=== PATIENT | male | born 1935 | race Caucasian/White ===

== ENCOUNTER 2025-01-19 15:36 | Outpatient (REF) | payer MEDICARE, SELFPAY ==
--- OUTSIDE RECORDS SUMMARY | 2025-01-05 23:59 | XMS_ITS | Continuity of Care Document ---
Author Organization [facility] Address [address] [place] [address] Care Team Providers Care Engine Turner Name Role Phone JAI ONOFRE JR Primary Care Physician Encounter FT_[email or web address] [id number] Date(s): 01/05/25 - 01/05/25 [facility] [address] [address]- [place] Discharge Disposition: Home (Routine DC) Attending Physician: Mak LEDEZMA MD Encounter Type: Clinic Allergies, Adverse Reactions, Alerts SubstanceCriticalitySeverityReactionReaction SeverityStatuspenicillinRashActive Medications Align mg, Oral, Daily, Refills(s) 0, Prophylaxis Start Date: 07/16/24 Status: Ordered Medication Dispense Status: Completed Total Allowed Fills: 1 Fills Dispensed: 0 atorvastatin 10 mg Tab mg tab(s), Oral, Daily, Refills(s) 0, High cholesterol Start Date: 06/16/24 Status: Ordered Medication Dispense Status: Completed Total Allowed Fills: 1 Fills Dispensed: 0 Atrovent HFA 17 mcg/inh inhalation aerosol = 2 puff(s), Inhalation, QID, # 12.9 gram, Refills(s) 0 Start Date: 06/16/24 Status: Ordered Medication Dispense Status: Completed Quantity: 12.9 Unit: g Total Allowed Fills: 1 Fills Dispensed: 0 Cipro 500 mg Tab 500 mg = 1 tab(s), Oral, As Directed, Take one tab the day before the procedure. Then take the 2nd tab after the procedure has been completed., # 2 tab(s), Refills(s) 0, Pharmacy: [facility]/pharmacy #[id number], cm, 09/25/24 13:04:00 EDT, Height/Length Dosing, 95.4, kg, 09/25/24 13:04:00 EDT, Weight Dosing Start Date: 09/25/24 Status: Ordered Medication Dispense Status: Completed Quantity: 2.0 Unit: tab(s) Total Allowed Fills: 1 Fills Dispensed: 0 ezetimibe 10 mg Tab mg tab(s), Oral, Daily, Refills(s) 0, High cholesterol Start Date: 06/16/24 Status: Ordered Medication Dispense Status: Completed Total Allowed Fills: 1 Fills Dispensed: 0 finasteride 5 mg Tab mg tab(s), Oral, Daily, Refills(s) 0 Start Date: 06/16/24 Status: Ordered Medication Dispense Status: Completed Total Allowed Fills: 1 Fills Dispensed: 0 metformin 1,000 mg, Oral, Refills(s) 0, Blood glucose Start Date: 06/16/24 Status: Ordered Medication Dispense Status: Completed Total Allowed Fills: 1 Fills Dispensed: 0 metoprolol 25 mg, Refills(s) 0, High blood pressure Start Date: 06/16/24 Status: Ordered Medication Dispense Status: Completed Total Allowed Fills: 1 Fills Dispensed: 0 MiraLax gm, Oral, Daily, Refill(s) 0, Constipation Start Date: 06/16/24 Status: Ordered Medication Dispense Status: Completed Total Allowed Fills: 1 Fills Dispensed: 0 montelukast 10 mg Tab mg tab(s), Oral, Daily, Refills(s) 0, Allergy symptoms Start Date: 06/16/24 Status: Ordered Medication Dispense Status: Completed Total Allowed Fills: 1 Fills Dispensed: 0 Senna Oral, Once a day (at bedtime), Refill(s) 0, Constipation Start Date: 07/16/24 Status: Ordered Medication Dispense Status: Completed Total Allowed Fills: 1 Fills Dispensed: 0 tamsulosin 0.4 mg Cap TAKE 1 CAPSULE BY MOUTH EVERY DAY AT NIGHT Start Date: 09/25/24 Status: Ordered Medication Dispense Status: Completed Total Allowed Fills: 1 Fills Dispensed: 0 Xarelto 20 mg oral tablet Refills(s) 0, Blood Thinner Start Date: 07/16/24 Status: Ordered Medication Dispense Status: Completed Total Allowed Fills: 1 Fills Dispensed: 0 Problem List ConditionConfirmationCourseEffective DatesStatusHealth StatusInformantBloating ConfirmedActiveAtrial FibrillationConfirmedResolvedBenign localized hyperplasia of prostate with urinary obstruction and lower urinary tract symptomsConfirmed ActiveBPH with obstruction/lower urinary tract symptomsConfirmedActiveHematuria ConfirmedActiveConstipationConfirmedActiveSOB (shortness of breath)Confirmed ActivePersonal history of bladder cancerConfirmedActiveHistory of UTIConfirmed ActiveHTN (hypertension)ConfirmedResolvedHypercholesterolemia NOSConfirmed ResolvedElevated PSAConfirmedActiveUrinary retentionConfirmedActiveType II diabetes mellitusConfirmedActive Procedures ProcedureDateRelated DiagnosisBody SiteStatusColonoscopy09/02/24Completed Qztqqooirq07/25/19CompletedTransrectal biopsy of prostate using ultrasound (US) guidance04/26/10ompletedEvolve Laser ablation of prostate10/19/09Completed Urodynamics08/31/09CompletedCystoscopy/TURBT104/07/08CompletedTonsillectomy Completed ,12/2009, 10/19/2009, 12/24/2009, 01/02/2011, 10/04/2010,06/28/2010, 10/04/2010, 01/02/2011,03/19/2012, 03/04/2013, 03/03/2014, 03/01/2015, 03/20/2016, 04/09/2017, 04/15/2018 Social History Social History TypeResponseSmoking StatusFormer smoker, quit more than 30 days ago;Never; Type: Cigarettes entered on: 07/16/24Birth SexMaleSex RepresentationMale (finding) Hospital Discharge Instructions Follow Up Care 12/18/2024 10:05:36 With:DARIEN ORELLANA, Mak Gooden, URL Address: [address] [place] [address] When: Unknown Patient Care team information Care Team Personnel Name: JAI ONOFRE JR, DO Position: FT Physician Member Role: Primary Care Physician Address: [facility] [place] [address] Telecom: Care Team Related Persons Name: CHRIS COLÓN Insurance Providers Guarantor name: GEOVANNY COLÓN Health Plan Information #: 1 Payer: MEDICARE Payer Identifier: [id number] Member Number: [id number] Group Number: [id number] Subscriber Identifier: [id number] Relationship to Subscriber: self Coverage Type: MEDICARE Coverage Verification Date: 25 Telecom: [phone] Address: [id number] [place] [address] Health Plan Information #: 2 Payer: AARP Payer Identifier: [id number] Member Number: [id number] Group Number: [id number] Subscriber Identifier: [id number] Relationship to Subscriber: self Coverage Type: PRIVATE HEALTH INSURANCE Coverage Verification Date: 25 Telecom: [phone] Address: [id number] [place] [address]
--- OUTSIDE RECORDS SUMMARY | 2025-01-07 14:30 | XMS_ITS | Encounter Summary ---
Author Organization [facility] Address [address] [place] [address] Care Team Providers Care Cutter Down Name Role Phone Tripp Cat MD Primary Care Provider + [phone] Reason for Visit * ReasonCommentsWound Go Arteaga is a 89 y.o. male who presents for FUV ulceration of left great toe. Son Gage is present. Son relates dressing was falling off, so patients son removed, 2 days ago. Patient currently on Bactrim for possible UTI. BS:158 A1C 11.7 (03/2024) Encounter Details DateTypeDepartmentCare Team (Latest Contact Info)Hbdynjzdltt83/19/2025 2:30 PM ESTOffice Visit [facility] [address] [place] [address] Rodolfo Ballard, DPM [address] [place], [place] [phone] Stasis dermatitis of left lower extremity due to peripheral venous hypertension (Primary Dx); Diabetic polyneuropathy associated with type 2 diabetes mellitus (HCC); Type 2 diabetes mellitus with pressure ulcer of toe, stage 2 (HCC) Social History Tobacco UseTypesPacks/DayYears UsedDateSmoking Tobacco: FormerCigarettesQuit: 1980Smokeless Tobacco: NeverAlcohol UseStandard Drinks/WeekCommentsNever0 (1 standard drink = 0.6 oz pure alcohol)Caffeine intake: 1-2 cups per daySex and Gender InformationValueDate RecordedSex Assigned at BirthNot on fileLegal Sex Male05/03/2022 7:33 PM EDTGender IdentityNot on fileSexual OrientationNot on filedocumented as of this encounter Last Filed Vital Signs Vital SignReadingTime TakenCommentsBlood Pressure--Pulse--Dfewzqvmbdp00.5 ??C (97.7 ??F)01/07/2025 2:26 PM ESTRespiratory Rate--Oxygen Saturation--Inhaled Oxygen Concentration--Pbiibn29.3 kg (210 lb)01/07/2025 2:26 PM ARTKlkoeg498 cm (6' 4 )01/07/2025 2:26 PM ESTBody Mass Index25.56103/09/2024 2:26 PM EST documented in this encounter Patient Instructions * Patient Instructions* Rodolfo Ballard DPM - 01/07/2025 2:30 PM EST As noted documented in this encounter Progress Notes * Rodolfo Ballard DPM - 01/07/2025 2:30 PM EST Images from the original note were not included. Subjective Patient ID: Russ Arteaga is a 89 y.o. male who presents for Wound Check (Russ Arteaga is a 89 y.o. malewho presents for FUV ulceration of left great toe. Son Gage is present. Son relates dressing was falling off, so patients son removed, 2 days ago. Patient currently on Bactrim for possible UTI. BS:158 A1C 11.7 (03/2024)). HPI Follow-up assessment: Stasis dermatitis of the left lower extremity. Accompanied by his son, Gage. The Unna boot [facility]. Patient currently on Bactrim antibiotic therapy for suspected UTI. Denies streaking or constitutional symptoms. Diarrhea condition has nearly resolved. Patient is well satisfied with therapeutic footwear. Wound Check Risk factors: Type II diabetes. Polypharmacy. Anti-coagulant therapy. ASA therapy. Diabetic peripheral neuropathy. Mobility and flexibility restraints. Medications Current Outpatient Medications: aspirin 81 MG EC tablet, Take 81 mg by mouth Daily (Patient not taking: Reported on 12/25/2024), Disp: , Rfl: atorvastatin (Lipitor) 10 MG tablet, Take 5 mg by mouth Daily, Disp: , Rfl: ezetimibe (Zetia) 10 MG tablet, Take 10 mg by mouth Daily, Disp: , Rfl: finasteride (Proscar) 5 MG tablet, Take 5 mg by mouth Daily Do not crush, chew, or split., Disp: , Rfl: metFORMIN, OSM, (Fortamet) 1000 MG 24 hr tablet, Take 1,000 mg by mouth in the evening. Take with meals Do not crush, chew, or split., Disp: , Rfl: metoprolol succinate XL (Toprol-XL) 25 MG 24 hr tablet, Take 12.5 mg by mouth Do not crush or chew., Disp: , Rfl: montelukast (Singulair) 10 MG tablet, Take by mouth, Disp: , Rfl: rivaroxaban (Xarelto) 20 MG tablet, Take by mouth Take with food., Disp: , Rfl: Allergies Penicillins Past Surgical History Past Surgical History: Procedure Laterality Date ACHILLES TENDON SURGERY Right Dr. Anderson many years ago CT ANGIOGRAM HEART CORONARY 03/25/2024 CT ANGIOGRAM TAVR 03/25/2024 CT GUIDED TRANSVAGINAL TRANSRECTAL FLUID DRAIN 02/02/2024 CT GUIDED TRANSVAGINAL TRANSRECTAL FLUID DRAIN 02/02/2024 OTHER SURGICAL HISTORY Cardiac stent OTHER SURGICAL HISTORY Polyp excised TONSILLECTOMY Family History Family History Problem Relation Name Age of Onset Hypertension Mother Cancer Sibling Objective General Examination: GENERAL EXAMINATION: Alert and oriented. Pleasant disposition. Wearing Dr. Fonseca therapeutic footwear and accommodative orthoses. Ambulatory with walker assist. Accompanied by his son, Gage. FOOT EXAM: Date of Last Foot Exam: 01/07/2025 Sensory testing performed: sensations normal Sensory and motor testing performed: strength normal Pedal pulse taking performed: 1+ Vascular: DORSALIS PEDIS PULSE: 1/4, bilaterally. POSTERIOR TIBIAL PULSE: 1/4, bilaterally. TEMPERATURE GRADIENT: warm to warm. EDEMA: symmetrical, mild, non-pitting edema bilateral ankles; with mild-moderate stasis dermatosis,skin changes consistent with stasis pigmentation of the left lower extremity; without ulcerative changes or vesicle formation. Similar changes are not present on the right lower extremity. CAPILLARY FILLING TIME(sec): capillary fill intact bilateral digits less than 3 secs. Neurologic: SHARP SENSATION: tactile and light touch sensation is diminished over the digital and forefoot areas. 5.07 MONOFILAMENT: Unable to effectively localize multiple points over the digital and forefoot areas. Dermatologic: SKIN FINDINGS: Skin turgor is fair. HYPERTROPHIC LESION: 3rd digit left foot: Slightly raised, non-tender, non- inflamed distal HD lesion. Left great toe: Distal hyperkeratotic lesion with ulcerative changes as noted. NAIL PATHOLOGY: Left great toe; digits 2, 3 bilateral: TDO deformity. Digits 4, 5 bilateral: Toenail dystrophy and clinical mycosis. Right great toe: Satisfactory total matricectomy.. MYCOSIS SCALE: total with debris; multiple digits. INTERDIGITAL MACERATION: clean, dry, non-inflamed. ULCER: Left great toe: Looney stage 0 wound distal aspect of the left great toe progress. The site is non-tender, non-inflamed, non-fluctuant; with no drainage noted. Slightly raised localized keratosis without eschar debris. There are no clinical signs of cellulitis, wound infection or ischemic necrosis.Soft tissue envelope well-perfused. Wound measurements: 12/25/2024: Looney stage 0. Post-debridement measurements: 12/04/2024: 0.4 x 0.3 x 0.2 cm Post-debridement measurements: 11/13/2024: 0.3 x 0.2 x 0.2 cm Post-debridement measurements: 10/28/2024: 0.5 x 0.3 x 0.2 cm. Post-debridement measurements: 10/09/2024: 0.4 x 0.2 x 0.1 cm Post-debridement measurements: 09/17/2024: 0.4 x 0.1 x 0.1 cm Post-debridement measurements: 09/04/2024: 0.6 x 0.3 x 0.2 cm Wound measurements: 08/26/2024: 0.9 x 0.5 x 0.2 cm Post-debridement measurements: 08/19/2024: 0.9 x 0.5 x 0.3 cm Post-debridement measurements: 08/11/2024: 1.0 x 0.7 x 0.3 cm SKIN PATHOLOGY: Texture and turgor turgor are fair. Orthopedic: JOINT RANGE OF MOTION: functional ankle, subtalar and MTP joint range of motion. DEFORMITIES: Right great toe: Rectus position; reflecting satisfactory IP joint fusion. Left great toe: Flexible hallux hammertoe deformity. Central digits bilateral are dorsally contracted; flexible and reducible in nature. Semi-rigid claw toe deformity 3rd digit left foot with distal HD lesion as noted MUSCLE STRENGTH: no focal deficits. Radiology: Assessment/Plan 1. Looney stage 0 neuropathic wound left great toe; maintaining secondary intention healing. 2. Type II diabetes. 3. Satisfactory outcome IP joint fusion right great toe (March 2016). 4. Satisfactory total matricectomy right great toe. 5. Diabetic peripheral neuropathy (Q9). 6. Flexible hallux hammertoe deformity left foot. 7. Stasis dermatitis left lower extremity; effectively resolving with Unna boot therapy. 8. Chronic venous insufficiency bilateral; clinically worse on the left. Plan: Clinical Notes: Review of clinical findings, etiology and contributing/aggravating factors, high-risk nature of the condition, response to date, treatment strategy, rationale and objectives. Left lower extremity: Multi-layer gradient compression Unna boot dressing; intact, clean and dry x 7 days. Instructions for removal at [facility] on 01/14/2025. Recommend Tubigrip compression therapy. Recommend emollient therapy daily. Elevation encouraged. Continue daily wound care measures left hallux: Site cleansing followed by thin layer of triple antibiotic ointment. Offloading: Therapeutic footwear with accommodative orthoses. Darco shoe as needed. Cane or walker assist. Follow up: 3 months; sooner if any problems arise. Procedure: As noted. This note was created with the assistance of a speech recognition program. While intending to generate a timely document that accurately reflects the content of the visit, no guarantee can be provided that every grammatical or spelling mistake has been or will be identified or corrected. Thank you for your understanding. Rodolfo Ballard DPM documented in this encounter Plan of Treatment DateTypeDepartmentCare Team (Latest Contact Info)Sdqkuybzcll71/24/2026 2:30 PM ESTProcedure Visit [facility] [address] [place] [address] Rodolfo Ballard DPM [address] [facility] [place] [address] documented as of this encounter Visit Diagnoses Diagnosis Stasis dermatitis of left lower extremity due to peripheral venous hypertension- Primary Diabetic polyneuropathy associated with type 2 diabetes mellitus (HCC) Type 2 diabetes mellitus with pressure ulcer of toe, stage 2 (HCC) documented in this encounter Care Teams Team MemberRelationshipSpecialtyStart DateEnd Date Tripp Cat MD [address] [place] [address] PCP - GeneralInternal Medicine09/19/22documented as of this encounter
--- OUTSIDE RECORDS SUMMARY | 2025-01-19 15:44 | XMS_ITS | Encounter Summary ---
Author Organization [facility] Address [address] [place] [address] Care Team Providers Care Commercial Lines Account Executive Name Role Phone Tripp Cat MD Primary Care Provider + [phone] Encounter Details DateTypeDepartmentCare Team (Latest Contact Info)Hzkkfmphxsg81/17/2025Telephone [facility] [address] [place] [address] Rodolfo Ballard, DPSilva [address] [place], [place] [phone] Social History Tobacco UseTypesPacks/DayYears UsedDateSmoking Tobacco: FormerCigarettesQuit: 1980Smokeless Tobacco: NeverAlcohol UseStandard Drinks/WeekCommentsNever0 (1 standard drink = 0.6 oz pure alcohol)Caffeine intake: 1-2 cups per daySex and Gender InformationValueDate RecordedSex Assigned at BirthNot on fileLegal Sex Male05/03/2022 7:33 PM EDTGender IdentityNot on fileSexual OrientationNot on filedocumented as of this encounter Miscellaneous Notes * Telephone Encounter - Zaida Velez - 01/05/2025 2:32 PM EST Ali faxed order and rescheduled appt * Telephone Encounter - Zaida Velez - 01/05/2025 1:08 PM EST Son called to let you know he is not comfortable bringing his dad to his appt this afternoon. He blood pressure is very high and he has almost fallen a few times as well. He also mentioned that he was going to take the unna boot off but the [facility] nursing staff said they need an order to do that. When would you like to see him again? documented in this encounter Plan of Treatment DateTypeDepartmentCare Team (Latest Contact Info)Ljwjmwrvxsh88/24/2026 2:30 PM ESTProcedure Visit [facility] [address] [place] [address] Rodolfo Ballard DPSilva [address] [place], [place] [phone] documented as of this encounter Visit Diagnoses Not on filedocumented in this encounter Care Teams Team MemberRelationshipSpecialtyStart DateEnd Date Tripp Cat MD [address] [place], [place] [phone] PCP - GeneralInternal Medicine09/19/22documented as of this encounter
--- OUTSIDE RECORDS SUMMARY | 2025-01-19 15:44 | XMS_ITS | Encounter Summary ---
Author Organization [facility] Address [address] [place] [address] Care Team Providers Care Medical Photographer Name Role Phone Tripp Cat MD Primary Care Provider + [phone] Encounter Details DateTypeDepartmentCare Team (Latest Contact Info)Bzbwtbzrszv07/19/2025bstract [facility] [address] [place] [address] Rodolfo Ballard DPM [address] [place], [place] [phone] Social History Tobacco UseTypesPacks/DayYears UsedDateSmoking Tobacco: FormerCigarettesQuit: 1980Smokeless Tobacco: NeverAlcohol UseStandard Drinks/WeekCommentsNever0 (1 standard drink = 0.6 oz pure alcohol)Caffeine intake: 1-2 cups per daySex and Gender InformationValueDate RecordedSex Assigned at BirthNot on fileLegal Sex Male05/03/2022 7:33 PM EDTGender IdentityNot on fileSexual OrientationNot on filedocumented as of this encounter Plan of Treatment DateTypeDepartmentCare Team (Latest Contact Info)Izmiqdswbno96/24/2026 2:30 PM ESTProcedure Visit [facility] [address] [place] [address] Rodolfo Ballard DPM [address] [place], [place] [phone] documented as of this encounter Visit Diagnoses Not on filedocumented in this encounter Care Teams Team MemberRelationshipSpecialtyStart DateEnd Date Tripp Cat MD [facility] [place] [address] PCP - GeneralInternal Medicine09/19/22documented as of this encounter
--- OUTSIDE RECORDS SUMMARY | 2025-01-19 15:44 | XMS_ITS | Encounter Summary ---
Author Organization [facility] Address [address] [place] [address] Care Team Providers Care Health And Safety Technician Name Role Phone Tripp Cat MD Primary Care Provider + [phone] Encounter Details DateTypeDepartmentCare Team (Latest Contact Info)Bspqggdfxti09/17/2025bstract [facility] [address] [place] [address] Rodolfo Ballard DPM [address] [place], [place] [phone] Social History Tobacco UseTypesPacks/DayYears UsedDateSmoking Tobacco: FormerCigarettesQuit: 1980Smokeless Tobacco: NeverAlcohol UseStandard Drinks/WeekCommentsNever0 (1 standard drink = 0.6 oz pure alcohol)Caffeine intake: 1-2 cups per daySex and Gender InformationValueDate RecordedSex Assigned at BirthNot on fileLegal Sex Male05/03/2022 7:33 PM EDTGender IdentityNot on fileSexual OrientationNot on filedocumented as of this encounter Plan of Treatment DateTypeDepartmentCare Team (Latest Contact Info)Gmqbnkltgdx34/24/2026 2:30 PM ESTProcedure Visit [facility] [address] [place] [address] Rodolfo Ballard DPM [address] [place], [place] [phone] documented as of this encounter Visit Diagnoses Not on filedocumented in this encounter Care Teams Team MemberRelationshipSpecialtyStart DateEnd Date Tripp Cat MD [facility] [place] [address] PCP - GeneralInternal Medicine09/19/22documented as of this encounter
--- OUTSIDE RECORDS SUMMARY | 2025-01-19 15:44 | XMS_ITS | Clinical Summary ---
Author Organization [facility] Address [address] [place] [address] Care Team Providers Care Automotive Service Assistant Name Role Phone Tripp Cat MD Primary Care Provider + [phone] Allergies Active AllergyReactionsCriticalityNoted JsrdZesnvzadMzrrdvfqxpfAgmlSof39/01/2023 Medications MedicationSigDispense QuantityRefillsLast FilledStart DateEnd DateStatus metFORMIN, OSM, (Fortamet) 1000 MG 24 hr tablet Take 1,000 mg by mouth in the evening. Take with meals Do not crush, chew, or split.Active montelukast (Singulair) 10 MG tablet Take by mouthActive rivaroxaban (Xarelto) 20 MG tablet Take by mouth Take with food.Active aspirin 81 MG EC tablet Take 81 mg by mouth DailyActive finasteride (Proscar) 5 MG tablet Take 5 mg by mouth Daily Do not crush, chew, or split.Active atorvastatin (Lipitor) 10 MG tablet Take 5 mg by mouth DailyActive metoprolol succinate XL (Toprol-XL) 25 MG 24 hr tablet Take 12.5 mg by mouth Do not crush or chew.Active ezetimibe (Zetia) 10 MG tablet Take 10 mg by mouth DailyActive Multiple Vitamin (multivitamin) capsule Take 1 capsule by mouth Daily12/25/2024Discontinued(Discontinued by another clinician) TAMSULOSIN HCL PO Take by mouth12/25/2024Discontinued(Discontinued by another clinician) Active Problems No known active problems Encounters DateTypeDepartmentCare PbjwSxxkzklhcvh33/19/2025 2:30 PM ESTOffice Visit [facility] [address] [place] [address] Rodolfo Ballard DPM Stasis dermatitis of left lower extremity due to peripheral venous hypertension (Primary Dx); Diabetic polyneuropathy associated with type 2 diabetes mellitus (HCC); Type 2 diabetes mellitus with pressure ulcer of toe, stage 2 (HCC)01/07/2025 Abstract [facility] [address] [place] [address] Rodolfo Ballard DPM 01/07/2025amboo flowsheet [facility] [address] [place] [address] Rodolfo Ballard DPM 01/07/20254412Iifmmy44/17/2025bstract [facility] [address] [place] [address] Rodolfo Ballard DPM 01/05/2025Telephone [facility] [address] [place] [address] Rodolfo Ballard DPM 12/25/2024 10:45 AM ESTOffice Visit [facility] [address] [place] [address] Rodolfo Ballard DPM Stasis dermatitis of left lower extremity due to peripheral venous hypertension (Primary Dx); Type 2 diabetes mellitus with pressure ulcer of toe, stage 2 (HCC); Diabetic polyneuropathy associated with type 2 diabetes mellitus (HCC)12/25/2024 Abstract [facility] [address] [place] [address] Rodolfo Ballard DPM 12/25/2024amboo flowsheet [facility] [address] [place] [address] Rodolfo Ballard DPM 12/25/20249332Hrixuh13/05/2025Telephone [facility] [address] [place] [address] Rodolfo Ballard DPM Advice Only (cellulitis)12/04/2024 1:15 PM EDTOffice Visit [facility] [address] [place] [phone] Rodolfo Ballard DPM Type 2 diabetes mellitus with pressure ulcer of toe, stage 2 (HCC) (Primary Dx); Diabetic polyneuropathy associated with type 2 diabetes mellitus (HCC); Hallux hammertoe, left12/04/2024bstract [facility] [address] [place] [address] Rodolfo Ballard DPM 12/04/2024amboo flowsheet [facility] [address] [place] [address] Rodolfo Ballard DPM 12/04/20242245Zopprq18/15/6833Mwzjtz11/09/2025[facility]phone [facility] [address] [place] [address] Rodolfo Ballard DPM Advice Only (Pt is Hospital - Questions)11/13/2024 1:00 PM EDTOffice Visit [facility] [address] [place] [phone] Rodolfo Ballard DPM Type 2 diabetes mellitus with pressure ulcer of toe, stage 2 (HCC) (Primary Dx); Diabetic polyneuropathy associated with type 2 diabetes mellitus (HCC)11/13/2024 Bamboo flowsheet [facility] [address] [place] [address] Rodolfo Ballard DPM 11/13/20246523Eypmxi56/09/2025 8:45 AM EDTOffice Visit [facility] [address] [place] [address] Rodolfo Ballard DPM Type 2 diabetes mellitus with pressure ulcer of toe, stage 2 (HCC) (Primary Dx); Diabetic polyneuropathy associated with type 2 diabetes mellitus (HCC)10/28/2024 Bamboo flowsheet [facility] [address] [place] [address] Rodolfo Ballard DPM 10/28/20242314Ssnbea75/09/20247048Zlnhfg33/03/2540Ctnlie04/02/2025Travelfrom Last 3 Months Immunizations ImmunizationAdministration DatesNext DueInfluenza Whole11/19/2013Influenza, High Dose Seasonal, Preservative Free12/22/2020,11/20/2019,11/06/2019,11/28/2016 Influenza, High-dose Seasonal, Quadrivalent, Preservative Free11/10/2019 Influenza, seasonal, dtjfjxwzzu99/01/2019Pfizer Gabriel-sucrose 6mo-4y.o.07/20/2020 Pneumococcal Conjugate PCV 13007/13/2016Pneumococcal Polysaccharide PPSV23 10/18/2020,12/16/2019,11/20/2007 Family History Medical HistoryRelationNameCommentsHypertensionMotherCancerSiblingRelationName StatusCommentsFatherDeceasedMotherDeceasedSiblingDeceased Social History Tobacco UseTypesPacks/DayYears UsedDateSmoking Tobacco: FormerCigarettesQuit: 1980Smokeless Tobacco: Never Tobacco Cessation:Counseling Given: Not Answered Alcohol UseStandard Drinks/WeekCommentsNever0 (1 standard drink = 0.6 oz pure alcohol)Caffeine intake: 1-2 cups per daySex and Gender InformationValueDate RecordedSex Assigned at BirthNot on fileLegal NorPayr3805/03/2022 7:33 PM EDT Gender IdentityNot on fileSexual OrientationNot on file Last Filed Vital Signs Vital SignReadingTime TakenCommentsBlood Dchpnvgq659/7201/06/2020 12:00 PM EST Pulse--Ujytuyojsra83.5 ??C (97.7 ??F)01/07/2025 2:26 PM ESTRespiratory Rate-- Oxygen Saturation--Inhaled Oxygen Concentration--Jkdssa86.3 kg (210 lb) 01/07/2025 2:26 PM FZEZhfhpt824 cm (6' 4 )01/07/2025 2:26 PM ESTBody Mass Index 25.56103/09/2024 2:26 PM EST Plan of Treatment DateTypeDepartmentCare Team (Latest Contact Info)Glvdzvszglv88/24/2026 2:30 PM ESTProcedure Visit [facility] [address] [place] [phone] Rodolfo Ballard, DPSilva [address] [place], [place] [phone] Health MaintenanceDue DateLast DoneCommentsCOVID-19 Vaccine ( season) /07/2021, 11/24/2020, 07/20/2020, Additional history existsInfluenza Vaccine (#1)511/04/2020, 11/20/2019, 11/10/2019, Additional history existsPneumococcal Vaccine: 65+ YmynsRhhsnpixt17/30/2021, 12/16/2019, 07/13/2016, Additional history exists Insurance Care Teams Team MemberRelationshipSpecialtyStart DateEnd Date Tripp Cat MD [facility] [place] [address] PCP - GeneralInternal Medicine09/19/22
--- OUTSIDE RECORDS SUMMARY | 2025-01-19 15:44 | XMS_ITS | Encounter Summary ---
Author Organization [facility] Address [address] [place] [address] Care Team Providers Care Fibreglass Laminator Name Role Phone Tripp Cat MD Primary Care Provider + [phone] Encounter Details DateTypeDepartmentCare Team (Latest Contact Info)Nmcddwgaope97/19/2025Bamboo flowsheet [facility] [address] [place] [address] Rodolfo Ballard DPM [address] [place], [place] [phone] Social History Tobacco UseTypesPacks/DayYears UsedDateSmoking Tobacco: FormerCigarettesQuit: 1980Smokeless Tobacco: NeverAlcohol UseStandard Drinks/WeekCommentsNever0 (1 standard drink = 0.6 oz pure alcohol)Caffeine intake: 1-2 cups per daySex and Gender InformationValueDate RecordedSex Assigned at BirthNot on fileLegal Sex Male05/03/2022 7:33 PM EDTGender IdentityNot on fileSexual OrientationNot on filedocumented as of this encounter Plan of Treatment DateTypeDepartmentCare Team (Latest Contact Info)Suxlsokjrxi75/24/2026 2:30 PM ESTProcedure Visit [facility] [address] [place] [address] Rodolfo Ballard DPM [address] [place], [place] [phone] documented as of this encounter Visit Diagnoses Not on filedocumented in this encounter Care Teams Team MemberRelationshipSpecialtyStart DateEnd Date Tripp Cat MD [facility] [place] [address] PCP - GeneralInternal Medicine09/19/22documented as of this encounter
--- OUTSIDE RECORDS SUMMARY | 2025-01-19 15:44 | XMS_ITS | Encounter Summary ---
Author Organization [facility] Address [address] [place] [address] Care Team Providers Care Military Exchange Wireless Manager Name Role Phone Tripp Cat MD Primary Care Provider + [phone] Encounter Details DateTypeDepartmentCare Team (Latest Contact Info)Hyhunrgramg19/19/2025Travel Social History Tobacco UseTypesPacks/DayYears UsedDateSmoking Tobacco: FormerCigarettesQuit: 1980Smokeless Tobacco: NeverAlcohol UseStandard Drinks/WeekCommentsNever0 (1 standard drink = 0.6 oz pure alcohol)Caffeine intake: 1-2 cups per daySex and Gender InformationValueDate RecordedSex Assigned at BirthNot on fileLegal Sex Male05/03/2022 7:33 PM EDTGender IdentityNot on fileSexual OrientationNot on filedocumented as of this encounter Plan of Treatment DateTypeDepartmentCare Team (Latest Contact Info)Cbxxsbyzuxw39/24/2026 2:30 PM ESTProcedure Visit [facility] [address] [place] [phone] Rodolfo Ballard DPSilva [address] [place] [address] documented as of this encounter Visit Diagnoses Not on filedocumented in this encounter Care Teams Team MemberRelationshipSpecialtyStart DateEnd Date Tripp Cat MD [address] [place] [address] PCP - GeneralInternal Medicine09/19/22documented as of this encounter
--- OUTSIDE RECORDS SUMMARY | 2025-01-19 15:44 | XMS_ITS | Clinical Summary ---
Author Organization [facility] Address [address] [place] [address], [address] [place] [address] Care Team Providers Care Entry Level Installation Technician Name Role Phone Unavailable Primary Care Provider Unavailabl e Social History Tobacco UseTypesPacks/DayYears UsedDateSmoking Tobacco: Never AssessedSex and Gender InformationValueDate RecordedSex Assigned at BirthNot on fileLegal Sex Male05/27/2012 9:14 PM EDTGender IdentityNot on fileSexual OrientationNot on file Plan of Treatment Not on file
--- OUTSIDE RECORDS SUMMARY | 2025-01-19 15:45 | XMS_ITS | Clinical Summary ---
Author Organization [employer] tem Address [id number] [address] [place] [address] Care Team Providers Care Rn Long Term Care Name Role Phone Emory Simms DO, Charles L Primary Care Provider Allergies Active AllergyReactionsCriticalityNoted DateCommentsAce InhibitorsOther (See Comments)2467UugurqsiohcZauwYgg37/17/2017 Medications MedicationSigDispense QuantityRefillsLast FilledStart DateEnd DateStatus montelukast (SINGULAIR) 10 mg tablet Take 1 tablet (10 mg total) by mouth in the morning.Active metFORMIN (GLUMETZA) 1000 MG (MOD) 24 hr tablet Take 500 mg by mouth daily with breakfast.Active finasteride (PROSCAR) 5 mg tablet Take 1 tablet (5 mg total) by mouth in the morning.Active atorvastatin (LIPITOR) 10 mg tablet Indications:1/2 tablet dailyTake 1 tablet (10 mg total) by mouth in the morning. Indications: 1/2 tablet daily.Active metoprolol succinate XL (TOPROL XL) 25 mg 24 hr tablet Take 0.5 tablets (12.5 mg total) by mouth in the morning.Active norethindrone-e.estradioL-iron (ESTROSTEP FE) 1-20(5)/1-30(7) /1mg-35mcg (9) tablet Take 1 tablet by mouth in the morning.Active rivaroxaban (XARELTO) 20 mg tablet tablet Take 1 tablet (20 mg total) by mouth in the morning.Active tamsulosin (FLOMAX) 0.4 mg capsule Take 1 capsule (0.4 mg total) by mouth nightly. 90 capsule 5Active Active Problems ProblemNoted DateDiagnosed DateUrinary tract infection associated with indwelling urethral pyuumsmf18/09/2025Diabetic ulcer of toe of left foot associated with type 2 diabetes mellitus, limited to breakdown of skin11/26/2024 Chronic indwelling Victor vypblwmw04/07/2025ellulitis of left lower extremity 09/09/2024SIRS (systemic inflammatory response syndrome)09/09/2024acteremia due to Gram-negative novobpye82/22/2025ute cystitis without wsqcwjyna74/07/2025PAF (paroxysmal atrial fibrillation)03/26/2024spiration pneumonia of right lung, unspecified aspiration pneumonia type, unspecified part of lung03/25/2024enign prostatic hyperplasia with lower urinary tract /04/2025Type 2 diabetes mellitus, without long-term current use of ikdvgwu3203/25/20246515Ezxlck26/04/2025 Mixed hnodxfnbcigdem70/04/2025History of subdural vbcvxbyl16/04/2025SCVD (arteriosclerotic cardiovascular disease)03/25/2024OPD cazpkvfehpaq86/04/2025 Subdural qjojxogo81/14/2024 Encounters DateTypeDepartmentCare FdcaYuvdbuimlji12/19/2025Lab Requisition [facility] - Lab [address] [place] [address] Lavon Duenas, DO Essential (primary) hypertension; Secondary malignant neoplasm of large intestine and rectum ([facility])12/23/2024 11:24 AM EST - 12/23/2024 1:30 PM ESTEmergency [facility] Emergency [address] [place] [address] Myrna Jang MD Fall, initial encounter (Primary Dx) Discharge Disposition: Home12/23/20246367Ifuucw06/23/2025Telephone [facility] [address] [place] [address] Phuong Silva MD 12/10/2024Telephone [facility] [address] [place] [address] Phuong Silva MD 11/25/2024 9:55 AM EDT - 11/28/2024 6:07 PM EDTHospital Encounter [facility] - [facility] Care [address] [place] [address] Myrna Jang MD Banerjee, Sunita, MD Cellulitis of left lower extremity (Primary Dx); Sepsis without acute organ dysfunction, due to unspecified organism ([facility]) Discharge Disposition: [facility]-Medicare Cert11/25/2024Travel from Last 3 Months Immunizations ImmunizationAdministration DatesNext DueCovid-19, Mrna, Lnp-s, Pf, 3mcg/0.2 Ml Dose, Gabriel-ployvch0907/20/2020Influenza High Dose Preservative Free IM12/22/2020, 11/20/2019,11/06/2019,11/28/2016Influenza Whole11/19/2013Influenza, Im Trivalent Cpvhykezgqza46/01/2019Pneumococcal Conjugate 13-Bsdshn4707/13/2016Pneumococcal Txmwdprqqdoqhl95/30/2021,11/20/2007 Family History Medical HistoryRelationNameCommentsTuberculosisFatherHypertensionMotherRelation NameStatusCommentsFatherDeceasedMotherDeceased Social History Tobacco UseTypesPacks/DayYears UsedDateSmoking Tobacco: FormerCigarettes Tobacco Cessation:Counseling Given: Not Answered Comments:Quit in 1979 Alcohol UseStandard Drinks/WeekCommentsNo0 (1 standard drink = 0.6 oz pure alcohol)[facility] UtilitiesAnswerDate RecordedIn the past 12 months has the [employer], oil, or water [employer] threatened to shut off services in your home?No 11/25/2024UDIT-CAnswerDate RecordedQ1: How often do you have a drink containing alcohol?Never02/02/2024Q2: How many drinks containing alcohol do you have on a typical day when you are drinking?Patient does not drink02/02/2024Q3: How often do you have six or more drinks on one occasion?Never02/02/2024Overall Financial Resource Strain (CARDIA)AnswerDate RecordedHow hard is it for you to pay for the very basics like food, housing, medical care, and heating?Not hard at all 02/02/2024HQ-2AnswerDate RecordedTotal Wqkur44004/04/2023RAPARE - Transportation AnswerDate RecordedIn the past 12 months, has lack of transportation kept you from medical appointments or from getting medications?No11/25/2024In the past 12 months, has lack of transportation kept you from meetings, work, or from getting things needed for daily living?No11/25/2024Housing InstabilityAnswerDate RecordedAre you worried or concerned that in the next two months you may not have stable housing that you own, rent or stay in as a part of a household?No 11/25/2024hildcareAnswerDate HnwupgauMbkicdzymCkzuojw28/12/2019EmploymentAnswer Date JpcxavwzDgqinkolqxKvifqrw88/12/2019Hunger ScreeningAnswerDate Recorded Within the past 12 months we worried whether our food would run out before we got money to buy more.Never True12/23/2024Within the past 12 months the food we bought just didn't last and we didn't have money to get more.Never True 12/23/2024Purpose - LifeAnswerDate RecordedPurpose and direction in lifeUnknown 04/01/2020ex and Gender InformationValueDate RecordedSex Assigned at BirthNot on fileLegal VavYvhs5709/24/2014 11:58 AM EDTGender IdentityNot on fileSexual OrientationNot on file Last Filed Vital Signs Vital SignReadingTime TakenCommentsBlood Bgyrzusl166/6012/23/2024 12:00 PM EST Bpvzg790312/23/2024 11:45 AM FQBTmgvqjbvekm65.8 ??C (98.3 ??F)12/23/2024 11:26 AM ESTRespiratory Gzzb561302/23/2024 11:45 AM ESTOxygen Yuteduwhqx00%12/23/2024 1:00 PM ESTInhaled Oxygen Concentration--Ujdupn61.2 kg (212 lb)12/23/2024 11:26 AM NQMVjvvko557 cm (6' 4 )12/23/2024 11:26 AM ESTBody Mass Index25.8112/23/2024 11:26 AM EST Plan of Treatment Health MaintenanceDue DateLast DoneCommentsDTaP,Tdap and Td Vaccines (1 - Tdap) 1954Zoster (Shingles) Vaccine (1 of 2)1954Fall Risk Screening 02/23/2000RSV ( or age 60+ yrs) (1 - 1-dose 75+ series)2010COVID- 19 Vaccine (6 - 2024- season)508/07/2021, 11/24/2020, 07/20/2020, Additional history existsInfluenza Dqulxih76/04/2020, 11/20/2019, 11/10/2019, Additional history existsDepression Fltgwtqrv59/ Tobacco Qemeghvsh52/05/2024 Goals GoalPatient Goal TypeAssociated ProblemsRecent ProgressPatient-Stated?Author SNF Carole Rothman RN Note: Evaluation of progress towards goal: Pt and son are agreeable to senior living facility. Medical Devices ImplantedTypeAreaManufacturerDevice IdentifierShelf Expiration DateModel / Serial / LotClareon Uv Iol Implanted:Qty: 1 on 01/25/2023 by Myrna Ford MD at [facility]: [employer]08/12/2026SY60WF / [id number] / NALens Iol Sy60wf.220 [place] - [id number] - [id number] Implanted:Qty: 1 on 02/15/2023 by Myrna Ford MD at [facility]: [employer]07/25/2026SY60WF.220 / [id number] / N/A Procedures Procedure NamePriorityDate/TimeAssociated DiagnosisCommentsHEMOGLOBIN F6HYylnnxg 01/07/2025 7:30 AM EST Essential (primary) hypertension Secondary malignant neoplasm of large intestine and rectum (CMS-HCC) WYOXeykanp56/19/2025 7:30 AM EST Essential (primary) hypertension Secondary malignant neoplasm of large intestine and rectum (CMS-HCC) CBC WITH AUTO QQOLNJSWUVODMwpliqb94/19/2025 7:30 AM EST Essential (primary) hypertension Secondary malignant neoplasm of large intestine and rectum (CMS-HCC) LIVER FQKYLZkecxza77/19/2025 7:30 AM EST Essential (primary) hypertension Secondary malignant neoplasm of large intestine and rectum (CMS-HCC) LIPID IKSJQFYIhqutvg40/19/2025 7:30 AM EST Essential (primary) hypertension Secondary malignant neoplasm of large intestine and rectum (CMS-HCC) BASIC METABOLIC DIWECHopoewz88/19/2025 7:30 AM EST Essential (primary) hypertension Secondary malignant neoplasm of large intestine and rectum (CMS-HCC) CT BRAIN WO PUYOYAET60/04/2025 12:[address] CERVICAL SPINE WO OUXWDKHV63/04/2025 12:10 PM EST BEDSIDE EFLYDPSVgqdzdd13/10/2025 4:06 PM EDT VANCOMYCIN, RGEISVCmlradz16/10/2025 2:01 PM EDT BEDSIDE VJPANHJWlzumuj34/10/2025 12:06 PM EDT TVXZGGIMZWnxblvy02/10/2025 9:54 AM EDT CBC WITH AUTO LMGZTWXMTAUMSnfvvmg63/10/2025 5:21 AM EDT TYNROIRQIKvxtbwn55/10/2025 5:21 AM EDT COMPREHENSIVE METABOLIC EFVCOLrhhmsg51/10/2025 5:21 AM EDT BEDSIDE UQDOUMMQswilbf35/09/2025 9:23 PM EDT VANCOMYCIN, WPSGObblxzr15/09/2025 4:05 PM EDT BEDSIDE GWFDNYCRrlrakh33/09/2025 4:02 PM EDT BEDSIDE ZDJVJEUJymjbcj38/09/2025 12:40 PM EDT VANCOMYCIN, PEVFISEalwhjf94/09/2025 11:56 AM EDT XR CHEST 1 ZLTspnyyy40/09/2025 11:02 AM EDT BEDSIDE GUVBTZACcfyvth15/09/2025 10:34 AM EDT BEDSIDE LNHPMCMCtgsbfo28/09/2025 7:38 AM EDT EXTRA TUBES BLUE PUPBqohbva63/09/2025 5:24 AM EDT B-TYPE NATRIURETIC PEPTIDEAdd-On11/27/2024 5:24 AM EDT EXTRA LJFSAZhmdkgd42/09/2025 5:24 AM EDT CBC WITH AUTO UDAXWYREQISQYbpxlgm44/09/2025 5:24 AM EDT JSPBZABQGOtztpzo61/09/2025 5:24 AM EDT COMPREHENSIVE METABOLIC RHAJLXtcamiq89/09/2025 5:24 AM EDT BEDSIDE UTPZKFHUpsnjli28/08/2025 8:53 PM EDT BEDSIDE UHHPXFZKjdvqzh10/08/2025 4:48 PM EDT BEDSIDE TKXYKYMYlvnhgs03/08/2025 12:10 PM EDT MAGNESIUMAdd-On11/26/2024 10:34 AM EDT ZENVLOAPENndgznl05/08/2025 10:34 AM EDT BEDSIDE RLDCBAGNozkhub29/08/2025 7:23 AM EDT EXTRA TUBES BLUE XBGCtpvkbp09/08/2025 5:18 AM EDT EXTRA UFNOSKsuhaqh17/08/2025 5:18 AM EDT LACTATE W/ OCRHKXPkdkkop09/08/2025 5:18 AM EDT CBC WITH AUTO LDTSOWMWIGWNBfaywbs03/08/2025 5:18 AM EDT QKRACXNVCQvlxbbp12/08/2025 5:18 AM EDT COMPREHENSIVE METABOLIC NTHFCVlurjqf80/08/2025 5:18 AM EDT BEDSIDE ICXMEMZTddsqwp26/07/2025 9:36 PM EDT POCT NURSING URINE MACROSCOPIC TRPmriups35/07/2025 12:28 PM EDT ER EXTRA URINE UMTDFZXKQT87/07/2025 12:25 PM EDT ER EXTRA DVWCIFAES86/07/2025 12:25 PM EDT URINE RYCXJCAHVCX69/07/2025 12:25 PM EDT VASC VENOUS DUPLEX LOWER SNUNHACI90/07/2025 12:16 PM EDT TROP I, HIGH SENSITIVITY 1 HNCHHQDJ06/07/2025 12:02 PM EDT XR CHEST 1 OUGYAA8911/25/2024 11:55 AM EDT BLOOD CNIZHDZCONP82/07/2025 11:04 AM EDT PM ED CRITICAL NXRARopvnbr26/07/2025 11:00 AM EDT ECG 12-GVSWMMAS48/07/2025 10:57 AM EDTEXTRA TUBES BLUE OFPWaqobtx07/07/2025 10:56 AM EDT PROCALCITONINAdd-On11/25/2024 10:56 AM EDT C-REACTIVE PROTEINAdd-On11/25/2024 10:56 AM EDT EXTRA SQKWJQujylri82/07/2025 10:56 AM EDT TROPONIN I, HIGH SENSITIVITY 0 UMQRPBCM30/07/2025 10:56 AM EDT LACTATE W/ DLTRBTNNZC50/07/2025 10:56 AM EDT CK GLOGBKBHW94/07/2025 10:56 AM EDT MYOGLOBIN, JMADEYAHZ44/07/2025 10:56 AM EDT TROPONIN I, HIGH SENSITIVITY 0 VARQIIQX25/07/2025 10:56 AM EDT COMPREHENSIVE METABOLIC FJQVGMKLC61/07/2025 10:56 AM EDT CBC WITH AUTO FGXIXBBLUIVCOLAE10/07/2025 10:56 AM EDT BLOOD DUISGNYFJUN06/07/2025 10:56 AM EDT from Last 3 Months Results * (ABNORMAL) CBC auto differential (01/07/2025 7:30 AM EST) Only the most recent of5 resultswithin the time period is included. ComponentValueRef RangeTest MethodAnalysis TimePerformed AtPathologist Signature WBC11.1(H)4 - 11 10^9/L103/09/2024 2:[address] [facility] RBC Count4.504.1 - 5.7 10^12/L11/ 2:57 PM ESTPROHENRY MAYO [facility]WHALL [facility]IAL HOSPITALHemoglobin13.413 - 17 g/dL01/07/2025 2:57 PM ESTPROHENRY MAYO [facility]WHALL MEMORIAL HOSPITALHematocrit40.039 - 50 %01/07/2025 2:57 PM ESTPROHENRY MAYO NEWHALL MEMORIAL HOSPITALMCV8980 - 100 fL01/07/2025 2:57 PM ESTSCCI HOSPITAL LIMAMCH29.827 - 34 pg01/07/2025 2:57 PM ESTPROEL CAMINO HOSPITALHC33.632 - 36 g/dL01/07/2025 2:57 PM ESTPROHENRY MAYO NEWHALL MEMORIAL HOSPITALRDW16.1(H)11.5 - 15 %01/07/2025 2:57 PM ESTSCCI HOSPITAL LIMAPlatelet Zotyg051759 - 450 10^01/07/2025 2:57 PM EST [facility]OMWE[facility] CENTERMPV8.77 - 12 fL01/07/2025 2:57 PM EST [facility] LIMANeutrophils %71.2%01/07/2025 2:57 PM EST [facility] LIMALymphocytes %17.1%01/07/2025 2:57 PM EST [facility] HOSPITALMonocytes %10.0%01/07/2025 2:57 PM EST [facility]ITALEosinophils %0.9%01/07/2025 2:57 PM EST [facility] LIMABasophils %0.8%01/07/2025 2:57 PM EST [facility] LIMANeutrophils Absolute (A)7.9(H)1.5 - 6.6 10^01/07/2025 2:57 PM ESTPROMEDIALAMEDA HOSPITALLymphocytes Absolute1.91.0 - 3.5 10^01/07/2025 2:57 PM ESTPROMEDIMORENO VALLEY COMMUNITY [facility]ITAL HOSPITALMonocytes Absolute1.1(H)0.0 - 0.9 10^9/L103/09/2024 2:57 PM ESTSCCI HOSPITAL LIMAEosinophils Absolute0.10.0 - 0.4 10^9/L103/09/2024 2:57 PM ESTPROHENRY MAYO NEWHALL MEM[facility] HOSPITALBasophils Absolute0.10.0 - 0.2 10^9/L 01/07/2025 2:57 PM [facility] AUTOMATED YZPESDJGOPFC33/19/2025 2:57 PM [facility] Specimen (Source)Anatomical Location / LateralityCollection Method / Volume Collection TimeReceived TimeBloodVenous blood / Voppdjf3001/07/2025 7:30 AM EST 01/07/2025 2:50 PM EST Narrative Authorizing ProviderResult TypeResult StatusJoseph S Yulissa DOLAB BLOOD ORDERABLESFinal ResultPerforming OrganizationAddressCity/State/ZIP CodePhone Number [address] [place] [address], [place] * TSH (01/07/2025 7:30 AM EST)ComponentValueRef RangeTest MethodAnalysis Time Performed AtPathologist SignatureTSH2.720.49 - 4.67 uIU/mL01/07/2025 3:53 PM [facility]ITALpecimen (Source)Anatomical Location / LateralityCollection Method / VolumeCollection TimeReceived TimeBloodVenous blood / Illwvxo0301/07/2025 7:30 AM EST01/07/2025 2:50 PM EST Narrative Authorizing ProviderResult TypeResult StatusJoseph S Yulissa DOLAB BLOOD ORDERABLESFinal ResultPerforming OrganizationAddressCity/State/ZIP CodePhone Number [address] [place] [address], [place] * (ABNORMAL) Hemoglobin A1c (01/07/2025 7:30 AM EST)ComponentValueRef RangeTest MethodAnalysis TimePerformed AtPathologist SignatureHEMOGLOBIN A1C6.0(H)4.4 - 5.6 %01/08/2025 6:43 AM [facility] LABORATORYComment: ?ADA Guidelines ?Result ?HgbA1c ? Normal : ? less than 5.7 % ? Prediabetes : ?5.7 % ??to 6.4 % Diabetes : > 6.4 % ?Use with caution in patients with abnormal hemoglobin variants as ??the half-life of red blood cells and in vivo glycation rates are ??affected. EST. AVERAGE KWDDCPD757wk/dL01/08/2025 6:43 AM [facility] LABORATORYSpecimen (Source)Anatomical Location / LateralityCollection Method / VolumeCollection TimeReceived TimeBloodVenous blood / Itouklq1901/07/2025 7:30 AM EST01/07/2025 2:50 PM EST Narrative Authorizing ProviderResult TypeResult StatusJoseph S Yulissa DOLAB BLOOD ORDERABLESFinal ResultPerforming OrganizationAddressCity/State/ZIP CodePhone Number [facility] [address] [place] [address], * Liver panel (01/07/2025 7:30 AM EST)ComponentValueRef RangeTest MethodAnalysis TimePerformed AtPathologist SignatureTOTAL PROTEIN7.56.0 - 8.0 g/dL01/07/2025 3:39 PM ESTPROMEDIALAMEDA HOSPITALALBUMIN3.83.2 - 5.3 g/dL 01/07/2025 3:39 PM ESTPROHENRY MAYO NEWHALL MEMORIAL HOSPITALBILIRUBIN,TOTAL0.70.3 - 1.2 mg/dL01/07/2025 3:39 PM ESTSCCI HOSPITAL LIMAALKALINE JGNNIGAIFOI1425 - 130 U/L103/09/2024 3:39 PM ESTPROHENRY MAYO NEWHALL MEMORIAL HOSPITALAST21<=41 U/L103/09/2024 3:39 PM [facility] SERVICESPROH[facility] ALT15<=40 U/L103/09/2024 3:39 PM [facility] BILIRUBIN,DIRECT0.1<=0.4 mg/dL01/07/2025 3:39 PM [facility]ITALpecimen (Source)Anatomical Location / LateralityCollection Method / VolumeCollection TimeReceived TimeBloodVenous blood / Dmzdfsd4701/07/2025 7:30 AM EST01/07/2025 2:50 PM EST Narrative Authorizing ProviderResult TypeResult StatusJoseph S Yulissa DOLAB BLOOD ORDERABLESFinal ResultPerforming OrganizationAddressCity/State/ZIP CodePhone Number [facility] [address] [place] [address], * (ABNORMAL) Lipid profile (01/07/2025 7:30 AM EST)ComponentValueRef RangeTest MethodAnalysis TimePerformed AtPathologist WqasqwgilKRHFITUYYPK559(L)150 - 200 mg/dL01/07/2025 6:49 PM [facility] XVAZHORZIWGRLTLGNMQVAQ8673 - 150 mg/dL01/07/2025 6:49 PM [facility] LABORATORYHDL DTBTXTNEBRB08>39 mg/dL01/07/2025 6:49 PM [facility] LABORATORYComment: HDL <40 mg/dL - High Risk HDL > or = 40mg/dL- Desirable HDL >60 mg/dL - Negative Risk LDL (CALC)29<130 mg/dL01/07/2025 6:49 PM [facility] Comment: LDL <100 mg/dL - Desirable LDL >160 mg/dL - High Risk CHOLESTEROL:HDL1.61.0 - 5.011/ 6:49 PM [facility] LABORATORYVERY LOW CXCCHIEWIBL363 - 30 mg/dL01/07/2025 6:49 PM [facility] LABORATORYSpecimen (Source)Anatomical Location / Laterality Collection Method / VolumeCollection TimeReceived TimeBloodVenous blood / Iyxtczu0901/07/2025 7:30 AM EST01/07/2025 2:50 PM EST Narrative Authorizing ProviderResult TypeResult StatusJoseph S Yulissa DOLAB BLOOD ORDERABLESFinal ResultPerforming OrganizationAddressCity/State/ZIP CodePhone Number [facility] [address] [place] [address], [place] [phone] * (ABNORMAL) Basic Metabolic Panel (01/07/2025 7:30 AM EST)ComponentValueRef RangeTest MethodAnalysis TimePerformed AtPathologist MckmddgmsMWUOBZ573600 - 146 mmol/L103/09/2024 3:39 PM ESTSCCI HOSPITAL LIMAPOTASSIUM 4.23.5 - 5.0 mmol/L103/09/2024 3:39 PM [facility] MUNKFSUM9982 - 109 mmol/L103/09/2024 3:39 PM ESTSCCI HOSPITAL LIMACARBON UGBKOVA4414 - 32 mmol/L103/09/2024 3:39 PM ESTSCCI [facility]OS[facility]ITAL LIMAANION RXS271 - 15 mmol/L103/09/2024 3:39 PM [facility]BLOOD UREA WPVEDFPU760 - 27 mg/dL01/07/2025 3:39 PM [facility]ICCREATININE1.35(H)0.70 - 1.20 mg/dL 01/07/2025 3:39 PM [facility]Comment:METHOD TRACEABLE TO IDMS EYBOOJQNDNOHGRT1143 - 99 mg/dL01/07/2025 3:39 PM EST [facility] LIMACALCIUM9.08.5 - 10.5 mg/dL01/07/2025 3:39 PM [facility]ICEGFR Non-Race Dvgdgzffe39(L)>=60 ml/min/1.73sq.m103/09/2024 3:39 PM [facility] Comment: eGFR not reported due to non-numeric value for Creatinine. Reported eGFR is based on the CKD-EPI 2020 equation that does not use a race coefficient. Specimen (Source)Anatomical Location / LateralityCollection Method / Volume Collection TimeReceived TimeBloodVenous blood / Ezfgrur4001/07/2025 7:30 AM EST 01/07/2025 2:50 PM EST Narrative Authorizing ProviderResult TypeResult StatusJoseph Arcenio FISCHER BLOOD ORDERABLESFinal ResultPerforming OrganizationAddressCity/State/ZIP CodePhone Number [facility] [address] [place] [address], [place] * CT brain without contrast (12/23/2024 12:10 PM EST)Anatomical RegionLaterality ModalityNeuro, Head, Head and Neck, Neuro CoveraN/AComputed TomographySpecimen (Source)Anatomical Location / LateralityCollection Method / VolumeCollection TimeReceived Time12/23/2024 12:12 PM EST Narrative 12/23/2024 12:[address] HEAD WITHOUT IV CONTRAST CLINICAL STATEMENT: fall Comparison study: 03/25/2024 ?? TECHNIQUE: ??Axial views were obtained at 2.5 mm interval through the head without IV contrast. Automatic dose exposure reduction technique utilized. FINDINGS: ??The midline structures are not deviated. ??The ventricular system is prominent. The toussaint and white matter show [periventricular white matter disease chronic. Volume loss stable likely in part related to atrophy. The posterior fossa is unremarkable. ? No features of raised intracranial pressure.No intracranial bleed. The IACs are unremarkable. ??The cerebellopontine angles are unremarkable. ??The temporomandibular joints show no abnormality. The osseous structures in the skull base and in the calvarium show no definite abnormality. The orbits are normal. Mucous retention cyst formation in the right maxillary antrum and periodontal changes which are chronic. The paranasal sinuses are clear. The mastoid air cells are clear. IMPRESSION: Chronic small vessel white matter disease. Atrophy. No acute intracranial pathology. All CT scans at this facility use dose modulation, iterative reconstruction, and/or weight based dosing when appropriate to reduce radiation dose to as low as reasonably achievable. Finalized by Dante Adams MD on 12/23/2024 12:28 PM Procedure Note Dante Adams MD - 12/23/2024 CT HEAD WITHOUT IV CONTRAST CLINICAL STATEMENT: fall Comparison study: 03/25/2024 TECHNIQUE: Axial views were obtained at 2.5 mm interval through the headwithout IV contrast. Automatic dose exposure reduction techniqueutilized. FINDINGS: The midline structures are not deviated. The ventricularsystem is prominent. The toussaint and white matter show [periventricular whitematter disease chronic. Volume loss stable likely in part related toatrophy. The posterior fossa is unremarkable. No features of raisedintracranial pressure.No intracranial bleed. The IACs are unremarkable. The cerebellopontine angles are unremarkable.The temporomandibular joints show no abnormality. The osseous structures in the skull base and in the calvarium show nodefinite abnormality. The orbits are normal. Mucous retention cyst formation in the right maxillary antrum andperiodontal changes which are chronic. The paranasal sinuses are clear. The mastoid air cells are clear. IMPRESSION: Chronic small vessel white matter disease. Atrophy. No acute intracranial pathology. All CT scans at this facility use dose modulation, iterativereconstruction, and/or weight based dosing when appropriate to reduceradiation dose to as low as reasonably achievable. Finalized by Dante Adams MD on 12/23/2024 12:28 PM Authorizing ProviderResult TypeResult StatusAmber [facility] HospitalN[facility] ORDERABLESFinal Result * CT cervical spine without contrast (12/23/2024 12:10 PM EST)Anatomical Region LateralityModalityMSK, Neuro, Spine, C-spine, Spine CoveraN/AComputed TomographySpecimen (Source)Anatomical Location / LateralityCollection Method / VolumeCollection TimeReceived Time12/23/2024 12:12 PM EST Narrative 12/23/2024 12:36 PM EST History: ??Trauma. fall Exam/Technique: ??Contiguous axial images are obtained of the cervical spine without intravenous contrast. ?Coronal and sagittal reconstructions were performed and reviewed. Automatic dose exposure reduction technique utilized. Comparison: ??03/25/2024 Findings: ?? No acute fracture or dislocation.No paraspinous mass or fluid collection. No apical pneumothorax. Asymmetrical apical pleural thickening. Vascular calcification. No obvious subluxations to suggest a ligamentous injury. There is some asymmetry of the lateral masses on the left compared to the right and which has mildly progressed since the study from 03/25/2024.Please correlate for any symptoms of rotatory subluxation. Osseous density is age appropriate. Degenerative changes are advanced. IMPRESSION: ?? No acute fracture or dislocation. Advanced degenerative changes. Rotatory offset of the lateral masses of C1 and C2. Correlate clinically for any features of rotatory subluxation. Please note that ligamentous laxity may be occult on neutral radiographs/static CT examinations, ifthere remains a high index of suspicion, recommend flexion- extension radiographs or MRI for more definitive evaluation. All CT scans at this facility use dose modulation, iterative reconstruction, and/or weight based dosing when appropriate to reduce radiation dose to as low as reasonably achievable. Finalized by Dante Adams MD on 12/23/2024 12:36 PM Procedure Note Dante Adams MD - 12/23/2024 History: Trauma. fall Exam/Technique: Contiguous axial images are obtained of the cervicalspine without intravenous contrast. Coronal and sagittalreconstructions were performed and reviewed. Automatic dose exposurereduction technique utilized. Comparison: 03/25/2024 Findings: No acute fracture or dislocation.No paraspinous mass or fluid collection.No apical pneumothorax. Asymmetrical apical pleural thickening. Vascular calcification. No obvious subluxations to suggest a ligamentous injury. There is someasymmetry of the lateral masses on the left compared to the right andwhich has mildly progressed since the study from 03/25/2024. Pleasecorrelate for any symptoms of rotatory subluxation. Osseous density is age appropriate. Degenerative changes are advanced. IMPRESSION: No acute fracture or dislocation. Advanced degenerative changes. Rotatory offset of the lateral masses of C1 and C2. Correlate clinicallyfor any features of rotatory subluxation. Please note that ligamentous laxity may be occult on neutralradiographs/static CT examinations, if there remains a high index ofsuspicion, recommend flexion- extension radiographs or MRI for moredefinitive evaluation. All CT scans at this facility use dose modulation, iterativereconstruction, and/or weight based dosing when appropriate to reduceradiation dose to as low as reasonably achievable. Finalized by Dante Adams MD on 12/23/2024 12:36 PM Authorizing ProviderResult TypeResult StatusRenetta Turpin RN CORRECTIONS-CNPIMG CT ORDERABLESFinal Result * (ABNORMAL) Bedside Glucose *Place/Obtain serum glucose if >500 per glucometer. (11/28/2024 4:06 PM EDT) Only the most recent of12 resultswithin the time period is included. ComponentValueRef RangeTest MethodAnalysis TimePerformed AtPathologist Signature Bedside Glucose (POC)122(H)65 - 99 mg/dL11/28/2024 8:27 PM [facility] (Source)Anatomical Location / LateralityCollection Method / VolumeCollection TimeReceived Timearterial/owokqclwj69/10/2025 4:06 PM EDT1 8:27 PM EDT Narrative Authorizing ProviderResult TypeResult Sheyla Tohmas MDPOINT OF CARE TEST ORDERABLESFinal ResultPerforming OrganizationAddressCity/State/ZIP CodePhone Number [address] [place] [address], [place] * Vancomycin, trough To be drawn prior to the 1500 dose (11/28/2024 2:01 PM EDT) Only the most recent of2 resultswithin the time period is included. ComponentValueRef RangeTest MethodAnalysis TimePerformed AtPathologist Signature VANCOMYCIN TROUGH7.65.0 - 20.0 ug/mL11/28/2024 3:17 PM [facility] (Source)Anatomical Location / LateralityCollection Method / VolumeCollection TimeReceived TimeBloodVenous blood / Unknown Venipuncture / Jrcbymt9211/28/2024 2:01 PM EDT1 2:22 PM EDT Narrative Authorizing ProviderResult TypeResult StatusKaterina Thomas [facility] BLOOD ORDERABLESFinal ResultPerforming OrganizationAddressCity/State/ZIP CodePhone Number [address] [place] [address], [place] * Potassium (11/28/2024 9:54 AM EDT) Only the most recent of2 resultswithin the time period is included. ComponentValueRef RangeTest MethodAnalysis TimePerformed AtPathologist Signature POTASSIUM4.03.5 - 5.0 mmol/L1 10:12 AM [facility] (Source)Anatomical Location / LateralityCollection Method / VolumeCollection TimeReceived TimeBloodVenous blood / UnknownVenipuncture / Aobpigc5911/28/2024 9:54 AM EDT1 9:56 AM EDT Narrative Authorizing ProviderResult TypeResult StatusKaterina Thomas [facility] BLOOD ORDERABLESFinal ResultPerforming OrganizationAddressCity/State/ZIP CodePhone Number [address] [place] [address], [place] * Magnesium (11/28/2024 5:21 AM EDT) Only the most recent of4 resultswithin the time period is included. ComponentValueRef RangeTest MethodAnalysis TimePerformed AtPathologist Signature MAGNESIUM1.91.8 - 2.6 mg/dL11/28/2024 5:59 AM EDK[facility] (Source)Anatomical Location / LateralityCollection Method / VolumeCollection TimeReceived TimeBloodVenous blood / UnknownVenipuncture / Duleqxj5511/28/2024 5:21 AM EDT1 5:37 AM EDT Narrative Authorizing ProviderResult TypeResult StatusMariposageoffrey Scott RN CORRECTIONS-[facility] BLOOD ORDERABLESFinal ResultPerforming OrganizationAddressty/State/ZIP CodePhone Number [address] [place] [address], [place] * (ABNORMAL) Comprehensive metabolic panel (11/28/2024 5:21 AM EDT) Only the most recent of4 resultswithin the time period is included. ComponentValueRef RangeTest MethodAnalysis TimePerformed AtPathologist Signature [id number] - 146 mmol/L1 5:59 AM EDTPST. FRANCIS HOSPITALPOTASSIUM3.73.5 - 5.0 mmol/L1 5:59 AM EDTPST. FRANCIS HOSPITALCHLORIDE10498 - 109 mmol/L1 5:59 AM [facility]CARBON UHUQDEJ4539 - 32 mmol/L1 5:59 AM EDT [facility] GAP85 - 15 mmol/L1 5:59 AM EDT [facility] LIMABLOOD UREA HJPSGQUD713 - 27 mg/dL11/28/2024 5:59 AM [facility] CENTERCREATININE0.69(L)0.70 - 1.20 mg/dL 11/28/2024 5:59 AM [facility]ENTERComment:METHOD TRACEABLE TO IDMS UKFODPLZNBFSQTT873(H)65 - 99 mg/dL11/28/2024 5:59 AM EDT [facility] LIMACALCIUM7.9(L)8.5 - 10.5 mg/dL11/28/2024 5:59 AM [facility] CENTERTOTAL PROTEIN6.06.0 - 8.0 g/dL 11/28/2024 5:59 AM [facility]ENTERALBUMIN3.0(L)3.2 - 5.3 g/dL11/28/2024 5:59 AM [facility]ENTERALKALINE [id number] - 130 U/L1 5:59 AM [facility]ENTERAST23<=41 U/L1 5:59 AM [facility] ALT23<=40 U/L1 5:59 AM [facility] BILIRUBIN,TOTAL0.80.3 - 1.2 mg/dL11/28/2024 5:59 AM [facility] CENTEREGFR Non-Race Wizcwxukm01>=60 ml/min/1.73sq.m1 5:59 AM [facility] CENTERComment: eGFR not reported due to non-numeric value for Creatinine. Reported eGFR is based on the CKD-EPI 2020 equation that does not use a race coefficient. Specimen (Source)Anatomical Location / LateralityCollection Method / Volume Collection TimeReceived TimeBloodVenous blood / UnknownVenipuncture / Unknown 11/28/2024 5:21 AM EDT1 5:37 AM EDT Narrative Authorizing ProviderResult TypeResult StatusMagali Chavez RN CORRECTIONS-CNPLAB BLOOD ORDERABLESFinal ResultPerforming OrganizationAddressCity/State/ZIP CodePhone Number [address] [place] [address], * Vancomycin, peak (11/27/2024 4:05 PM EDT)ComponentValueRef RangeTest Method Analysis TimePerformed AtPathologist SignatureVANCOMYCIN PEAK34.230.0 - 40.0 ug/mL11/27/2024 4:29 PM EDTPROMEDICA M[facility]LO [facility]PITALpecimen (Source)Anatomical Location / LateralityCollection Method / VolumeCollection TimeReceived TimeBloodVenous blood / UnknownVenipuncture / Dzmcxop1211/27/2024 4:05 PM EDT1 4:07 PM EDT Narrative Authorizing ProviderResult TypeResult StatusKaterina Thomas [facility] BLOOD ORDERABLESFinal ResultPerforming OrganizationAddressCity/State/ZIP CodePhone Number [address] [place] [address], [place] * X-ray chest 1 view (11/27/2024 11:02 AM EDT) Only the most recent of2 resultswithin the time period is included. Anatomical RegionLateralityModalityBody, ChestN/AComputed RadiographySpecimen (Source)Anatomical Location / LateralityCollection Method / VolumeCollection TimeReceived Time11/27/2024 11:13 AM EDT Narrative 11/27/2024 11:13 AM EDT CLINICAL INFORMATION: . hypoxia. TECHNIQUE/PROCEDURE: Chest radiograph, single view. COMPARISON: Prior chest radiographs, most recently 11/25/2024 FINDINGS: No tracheal deviation. Cardiac and mediastinal contours are stable. No pneumothorax or free air. Bibasilar opacities are unchanged. No significant pleural fluid. IMPRESSION: * ??Chronic bibasilar opacities with no radiographic evidence of superimposed cardiopulmonary disease. Finalized by Bubba Guevara MD on 11/27/2024 11:13 AM Procedure Note Bubba Guevara MD - 11/27/2024 CLINICAL INFORMATION: . hypoxia. TECHNIQUE/PROCEDURE: Chest radiograph, single view. COMPARISON: Prior chest radiographs, most recently 11/25/2024 FINDINGS: No tracheal deviation. Cardiac and mediastinal contours are stable. No pneumothorax or free air. Bibasilar opacities are unchanged. Nosignificant pleural fluid. IMPRESSION: * Chronic bibasilar opacities with no radiographic evidence ofsuperimposed cardiopulmonary disease. Finalized by Bubba Guevara MD on 11/27/2024 11:13 AM Authorizing ProviderResult TypeResult Annamarie Chavez RN CORRECTIONS-CNPIMG DIAGNOSTIC IMAGING ORDERABLESFinal Result * Light Blue Top (11/27/2024 5:24 AM EDT) Only the most recent of3 resultswithin the time period is included. ComponentValueRef RangeTest MethodAnalysis TimePerformed AtPathologist Signature Extra TubeAuto Gimawbdd45/09/2025 7:01 AM [facility] Specimen (Source)Anatomical Location / LateralityCollection Method / Volume Collection TimeReceived TimeBloodVenous blood / Imnieor6511/27/2024 5:24 AM EDT 11/27/2024 6:05 AM EDT Narrative Authorizing ProviderResult TypeResult StatusKaterina Thomas [facility]DL[facility] BLOOD ORDERABLESFinal ResultPerforming OrganizationAddressCity/State/[place] [address], * (ABNORMAL) B-type natriuretic peptide (11/27/2024 5:24 AM EDT)ComponentValue Ref RangeTest MethodAnalysis TimePerformed AtPathologist BkkqfcehgQLD476(H) <=100 pg/mL11/27/2024 11:06 AM [facility] (Source)Anatomical Location / LateralityCollection Method / VolumeCollection TimeReceived TimeBloodVenous blood / UnknownVenipuncture / Unyenfa0211/27/2024 5:24 AM EDT1 6:05 AM EDT Narrative Authorizing ProviderResult TypeResult StatusAngela Turner RN CORRECTIONS-CNPLAB BLOOD ORDERABLESFinal ResultPerforming OrganizationAddressCity/State/ZIP CodePhone Number [address] [place] [address], [place] * Lactate w/ Reflex (11/26/2024 5:18 AM EDT) Only the most recent of2 resultswithin the time period is included. ComponentValueRef RangeTest MethodAnalysis TimePerformed AtPathologist Signature LACTATE W/REFLEX1.00.4 - 2.0 mmol/L1 5:44 AM EDTPMORROW COUNTY HOSPITALpecunc medical centern (Source)Anatomical Location / LateralityCollection Method / VolumeCollection TimeReceived TimeBloodVenous blood / Unknown Venipuncture / Qptfchk6211/26/2024 5:18 AM EDT1 5:23 AM EDT Narrative [facility] - 11/26/2024 5:44 AM EDT Result did not trigger repeat Lactate, re-order if needed. Authorizing ProviderResult TypeResult [facility] RN CORRECTIONS-CNPLAB BLOOD ORDERABLESFinal ResultPerforming OrganizationAddressty/State/ZIP CodePhone Number [address] [place] [address], [place] * (ABNORMAL) POCT Nursing Urine Macroscopic UA (11/25/2024 12:28 PM EDT) ComponentValueRef RangeTest MethodAnalysis TimePerformed AtPathologist SignaturePOC Urine Specific Gravity1.0151.010, 1.015, 1.020, 1.5550911/25/2024 12:29 PM EDTPO[facility] Urine Leukocyte Esterase Small(A)Qxrcktab29/07/2025 12:29 PM EDTPO[facility] Urine LhrcqyrYdzkjzufInrtbnia34/07/2025 12:29 PM EDTPO[facility] Urine pH7.05.0, 6.0, 6.5, 7.0, 7.5, 8.0, 8.5, 5.510 12:29 PM EDTPOH[facility] Urine Xfxiiyb10 mg/dL(A)Negative 11/25/2024 12:29 PM [facility] Urine Glucose AgnkefrfSffiotod61/07/2025 12:29 PM [facility] Urine KetonesTrace(A)Dzlgtxtu31/07/2025 12:29 PM [facility]DA[facility] Urine Urobilinogen0.2 E.U./dL11/25/2024 12:29 PM [facility]DA[facility] Urine IedgadbpuYqkgctwaDcaipdug25/07/2025 12:29 PM [facility]DA[facility] Urine Blood/HGBLarge(A)Negative 11/25/2024 12:29 PM [facility] (Source) Anatomical Location / LateralityCollection Method / VolumeCollection Time Received YusoIqnub12/07/2025 12:28 PM EDT1 12:29 PM EDT Narrative Authorizing ProviderResult TypeResult StatusSusan E Chehade MDPOINT OF CARE TEST ORDERABLESFinal ResultPerforming OrganizationAddressCity/State/ZIP CodePhone Number [address] [place] [address], [place] * Extra Urine [place] (11/25/2024 12:25 PM EDT)ComponentValueRef RangeTest Method Analysis TimePerformed AtPathologist SignatureExtra TubeAuto Resulted 11/25/2024 2:01 PM [facility] (Source) Anatomical Location / LateralityCollection Method / VolumeCollection Time Received TimeUrineUrine specimen collection, clean catch / Qviytin0611/25/2024 12:25 PM EDT1 12:35 PM EDT Narrative Authorizing ProviderResult TypeResult StatusRachel D Jonathan RN CORRECTIONS-CNPURINE ORDERABLESFinal ResultPerforming OrganizationAddressty/State/ZIP CodePhone Number [address] [place] [address], [place] * Extra Urine (11/25/2024 12:25 PM EDT)ComponentValueRef RangeTest Method Analysis TimePerformed AtPathologist SignatureExtra TubeAuto Resulted 11/25/2024 2:01 PM EDTPROMEDICA M[facility]LO [facility]ARK [facility]PITALpecimen (Source) Anatomical Location / LateralityCollection Method / VolumeCollection Time Received TimeUrineUrine specimen collection, clean catch / Bawiprq6811/25/2024 12:25 PM EDT1 12:35 PM EDT Narrative Authorizing ProviderResult TypeResult StatusRachel Jie Castillo RN CORRECTIONS-CNPURINE ORDERABLESFinal ResultPerforming OrganizationAddressCity/State/ZIP CodePhone Number [facility] [address] [place] [address], [place] * (ABNORMAL) Urine Culture Urine, Clean Catch Midstream (11/25/2024 12:25 PM EDT)ComponentValueRef RangeTest MethodAnalysis TimePerformed AtPathologist SignatureCULTURE RESULTS>100,000 CFU/mL Enterococcus species(A)11/28/2024 10:41 AM [facility]ATORYComment: Ampicillin or Amoxicillin is the drug of choice for uncomplicated cystitis caused by enterococci. Cephalosporins are inappropriate. CULTURE MFTVNSB08,000-100,000 CFU/mL Kylie albicans(A)11/28/2024 10:41 AM EDT [facility] LABORATORYSpecimen (Source)Anatomical Location / LateralityCollection Method / VolumeCollection TimeReceived TimeUrineUrine specimen collection, clean catch / Avynedj2611/25/2024 12:25 PM EDT1 12:35 PM EDT Narrative OrganismAntibioticMethodSusceptibilityEnterococcus speciesAmpicillin <=2.0: Susceptible Enterococcus speciesLevofloxacin 1.0: Susceptible Enterococcus speciesNitrofurantoin <=16.0: Susceptible Enterococcus speciesVancomycin <=0.5: Susceptible Enterococcus speciesSusceptibility CommentAuthorizing ProviderResult TypeResult StatusRachel Jie Castillo APRN-CNPMICROBIOLOGY - GENERAL ORDERABLESFinal Result Performing OrganizationAddressCity/State/ZIP CodePhone Number [facility] [address] [place] [address], [place] [phone] * Vas venous duplex lwr single left (11/25/2024 12:16 PM EDT)Anatomical Region LateralityModalityVascularLeftUltrasoundSpecimen (Source)Anatomical Location / LateralityCollection Method / VolumeCollection TimeReceived Time11/25/2024 12:21 PM EDT Narrative 11/25/2024 6:00 PM EDT Right: Common femoral vein is compressible with spontaneous phasic spectral Doppler waveforms. Left: Non-visualized, absent or surgically harvested great saphenous superficial vein. Lower extremity deep veins are compressible with spontaneous phasic spectral Doppler waveforms; remaining superficial veins are compressible without intraluminal content. Conclusions: LEFT:The great saphenous vein is not visualized or surgically absent. NO EVIDENCE of deep or superficial vein thrombosis of the left lower extremity. No evidence of deep vein thrombosis (DVT) of the right common femoral vein. Procedure Note Phuong Silva MD - 11/25/2024 Right: Common femoral vein is compressible with spontaneous phasicspectral Doppler waveforms. Left: Non-visualized, absent or surgically harvested great saphenoussuperficial vein. Lower extremity deep veins are compressible withspontaneous phasic spectral Doppler waveforms; remaining superficial veinsare compressible without intraluminal content. Conclusions: LEFT:The great saphenous vein is not visualized or surgically absent. NO EVIDENCE of deep or superficial vein thrombosis of the leftlower extremity. No evidence of deep vein thrombosis (DVT) of the rightcommon femoral vein. Authorizing ProviderResult TypeResult StatusRachel Jie Castillo APRN-CNPCV VASCULAR ORDERABLESFinal Result * Troponin I, High Sensitivity 1 Hour (11/25/2024 12:02 PM EDT)ComponentValueRef RangeTest MethodAnalysis TimePerformed AtPathologist SignatureTROPONIN I, HIGH LLCVIADMNNA07<21 ng/L1 12:39 PM EDTPROMEDHIGHLAND HOSPITALpecimen (Source)Anatomical Location / LateralityCollection Method / VolumeCollection TimeReceived TimeBloodVenous blood / UnknownVenipuncture / Vjicjto2511/25/2024 12:02 PM EDT1 12:04 PM EDT Narrative Authorizing ProviderResult TypeResult StatusRachel Jie Castillo APRN-CNPLAB BLOOD ORDERABLESFinal ResultPerforming OrganizationAddressCity/State/ZIP CodePhone Number [facility] [address] [place] [address], [place] * Blood culture (11/25/2024 11:04 AM EDT) Only the most recent of2 resultswithin the time period is included. ComponentValueRef RangeTest MethodAnalysis TimePerformed AtPathologist Signature CULTURE RESULTSNO GROWTH 5 DAYS11/30/2024 2:01 PM EDTTST. [facility]LES [facility] LABORATORYSpecimen (Source)Anatomical Location / LateralityCollection Method / VolumeCollection TimeReceived TimeBloodVenous blood / UnknownVenipuncture / Rkbsdch4911/25/2024 11:04 AM EDT1 11:05 AM EDT Narrative Authorizing ProviderResult TypeResult Mandeep CHERRY MICROBIOLOGY - GENERAL ORDERABLESFinal ResultPerforming OrganizationAddress City/State/ZIP CodePhone Number [facility] [address] [place] [address], * Critical Care (11/25/2024 11:00 AM EDT) Narrative Myrna Jang MD - 11/25/2024 11:00 AM EDT Myrna Jang MD 12/08/2024 7:15 PM Critical Care Performed by: DILIP Galeas Authorized by: Myrna Jang MD ?? Critical care provider statement: ??Critical care time (minutes): ??35 ??Critical care was necessary to treat or prevent imminent or life-threatening deterioration of the following conditions: ??Sepsis ??Critical care was time spent personally by me on the following activities: ??Evaluation of patient's response to treatment, examination of patient, obtaining history from patient or surrogate, ordering and performing treatments and interventions, ordering and review of laboratory studies, ordering and review of radiographic studies, pulse oximetry, re-evaluation of patient's condition and review of old charts ??I assumed direction of critical care for this patient from another provider in my specialty: yes ?Care discussed with: admitting provider ?? Authorizing ProviderResult TypeResult Ann Jang MDPROCEDURE/MINOR SURGICAL ORDERABLESFinal Result * ECG 12 lead (11/25/2024 10:57 AM EDT)Specimen (Source)Anatomical Location / LateralityCollection Method / VolumeCollection TimeReceived Time11/25/2024 10:57 AM EDT Narrative Authorizing ProviderResult TypeResult StatusRachel D Jonathan RN CORRECTIONS-CNPECG ORDERABLESFinal ResultPerforming OrganizationAddressCity/State/ZIP CodePhone Number [facility] * Troponin I, High Sensitivity 0 Hour (11/25/2024 10:56 AM EDT)ComponentValueRef RangeTest MethodAnalysis TimePerformed AtPathologist SignatureTROPONIN I, HIGH YZVWQIDWDUX98<21 ng/L1 12:06 PM EDK[facility] (Source)Anatomical Location / LateralityCollection Method / VolumeCollection TimeReceived TimeBloodVenous blood / UnknownVenipuncture / Lrhrdpj6011/25/2024 10:56 AM EDT1 11:06 AM EDT Narrative Authorizing ProviderResult TypeResult StatusRachel D Jonathan RN CORRECTIONS-CNPLAB BLOOD ORDERABLESFinal ResultPerforming OrganizationAddressCity/State/ZIP CodePhone Number [facility] [address] * (ABNORMAL) Procalcitonin (11/25/2024 10:56 AM EDT)ComponentValueRef RangeTest MethodAnalysis TimePerformed AtPathologist SignaturePROCALCITONIN0.56(H)<0.05 ng/mL11/25/2024 4:12 PM EDK[facility] (Source)Anatomical Location / LateralityCollection Method / VolumeCollection TimeReceived TimeBloodVenous blood / UnknownVenipuncture / Majcmys2811/25/2024 10:56 AM EDT1 11:06 AM EDT Narrative [facility] - 11/25/2024 4:12 PM EDT <0.50 ng/mL - Low risk of severe sepsis and/or septic shock. <2.00 ng/mL - Recommend retesting within 6-24 hours. >2.00 ng/mL - High risk of sepsis and/or septic shock. Authorizing ProviderResult TypeResult StatusMagali Chavez RN CORRECTIONS-CNPLAB BLOOD ORDERABLESFinal ResultPerforming OrganizationAddressCity/State/ZIP CodePhone Number [address] [place] [address], [place] * (ABNORMAL) C-reactive protein (11/25/2024 10:56 AM EDT)ComponentValueRef Range Test MethodAnalysis TimePerformed AtPathologist SignatureC REACTIVE PROTEIN0.9 (H)<=0.7 mg/dL11/25/2024 4:06 PM [facility] Specimen (Source)Anatomical Location / LateralityCollection Method / Volume Collection TimeReceived TimeBloodVenous blood / UnknownVenipuncture / Unknown 11/25/2024 10:56 AM EDT1 11:06 AM EDT Narrative Authorizing ProviderResult TypeResult StatusMagali Turner RN CORRECTIONS-CNPLAB BLOOD ORDERABLESFinal ResultPerforming OrganizationAddressCity/State/ZIP CodePhone Number [address] [place] [address], [place] * Myoglobin, serum (11/25/2024 10:56 AM EDT)ComponentValueRef RangeTest Method Analysis TimePerformed AtPathologist SignatureSERUM RKQAMBZXR48.917.4 - 105.7 ng/mL11/25/2024 12:05 PM [facility] ([facility])Anatomical Location / LateralityCollection Method / VolumeCollection TimeReceived TimeBloodVenous blood / UnknownVenipuncture / Ffsshno3411/25/2024 10:56 AM EDT1 11:06 AM EDT Narrative Authorizing ProviderResult TypeResult StatusYamilet Castillo RN CORRECTIONS-CNPLAB BLOOD ORDERABLESFinal ResultPerforming OrganizationAddressty/State/ZIP CodePhone Number [address] [place] [address], [place] * CK Total (11/25/2024 10:56 AM EDT)ComponentValueRef RangeTest MethodAnalysis TimePerformed AtPathologist AissjsewwTJN3359 - 195 U/L1 11:28 AM EDT [facility] (Source)Anatomical Location / LateralityCollection Method / VolumeCollection TimeReceived TimeBloodVenous blood / UnknownVenipuncture / Yqtopuo0411/25/2024 10:56 AM EDT1 11:06 AM EDT Narrative Authorizing ProviderResult TypeResult StatusRachel D Jonathan RN CORRECTIONS-CNPLAB BLOOD ORDERABLESFinal ResultPerforming OrganizationAddressCity/State/ZIP CodePhone Number [facility] [address] [place] [address], from Last 3 Months Insurance Advance Directives TypeDate RecordedPatient RepresentativeExplanationDurable Power of Pediatric Nephrologist 03/26/2024 11:57 AMAdvance Directive03/26/2024 11:55 AMDNR 03/26/24Living Will03/26/2024 11:54 AM * Full Code (Latest Code Status on File) Date ActivatedDate FfhuetxbnbcDdfjgndj76/7/2025 6:26 PM10 8:12 PM * Full Code Date ActivatedDate InactivatedComments09/08/2024 8:31 PM09/12/2024 7:10 PM * Full Code Date ActivatedDate InactivatedComments03/25/2024 4:42 PM2 3:21 PM * Full Code Date ActivatedDate IudbznvryijXmcsiyhu65/14/2024 1:41 PM02/05/2024 4:31 PM Care Teams Team MemberRelationshipSpecialtyStart DateEnd Date Tripp Cat Jr., DO [facility] [place] [address] PCP - GeneralInternal Medicine03/25/24
--- OUTSIDE RECORDS SUMMARY | 2025-01-19 15:45 | XMS_ITS | Encounter Summary ---
Author Organization [facility] [employer] [facility] tem Address [id number] [address] [place] [address] Care Team Providers Care Detective Automobile Section Name Role Phone Emory Simms DO, Charles L Primary Care Provider Encounter Details DateTypeDepartmentCare Team (Latest Contact Info)Kqbhfdbjrpr45/19/2025Lab Requisition [facility] [address] [place] [address] Lavon Duenas DO [address] [facility] [place] [id number] Essential (primary) hypertension; Secondary malignant neoplasm of large intestine and rectum ([facility]) Social History Tobacco UseTypesPacks/DayYears UsedDateSmoking Tobacco: FormerCigarettes Comments:Quit in 1979 Alcohol UseStandard Drinks/WeekCommentsNo0 (1 standard drink = 0.6 oz pure alcohol)[facility] UtilitiesAnswerDate RecordedIn the past 12 months has the [employer], oil, or water [employer]* threatened to shut off services in your [...] medical care, and heating?Not hard at all 4PHQ-2AnswerDate RecordedTotal Kopdd57204/04/2023RAPARE - Transportation AnswerDate RecordedIn the past 12 [...] as a part of a household?No 11/25/2024hildcareAnswerDate HgdhtooxAejhttffpJcahjce70/12/2019EmploymentAnswer Date BfixupxxWzksjatxyqXijakdx58/12/2019Hunger ScreeningAnswerDate Recorded Within the past 12 months we worried whether our food would run out before we got money to buy more.Never True12/23/2024Within the past 12 months the food we bought just didn't last and we didn't have money to get more.Never True 12/23/2024Purpose - LifeAnswerDate RecordedPurpose and direction in lifeUnknown 04/01/2020ex and Gender InformationValueDate RecordedSex Assigned at BirthNot on fileLegal GsiHyod9909/24/2014 11:58 AM EDTGender IdentityNot on fileSexual OrientationNot on filedocumented as of this encounter Plan of Treatment Not on file documented as of this encounter Goals GoalPatient Goal TypeAssociated ProblemsRecent ProgressPatient-Stated?Author Carole Valadez, DEEPTI Note: Evaluation of progress towards goal: Pt and son are agreeable to fdc facility. 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 EST. AVERAGE TDTVCPM474su/dL01/08/2025 6:43 AM [facility] LABORATORYSpecimen (Source)Anatomical Location / LateralityCollection Method / VolumeCollection TimeReceived TimeBloodVenous blood / Fplhxii8201/07/2025 7:30 AM EST01/07/2025 2:50 PM EST Narrative Authorizing ProviderResult TypeResult StatusJoseph S Yulissa DOLAB BLOOD ORDERABLESFinal ResultPerforming OrganizationAddressCity/State/ZIP CodePhone Number [facility] [address] [place] [address], [place] [phone] * TSH (01/07/2025 7:30 AM EST)ComponentValueRef RangeTest MethodAnalysis Time Performed AtPathologist SignatureTSH2.720.49 - 4.67 uIU/mL01/07/2025 3:53 PM [facility] SYSTEMpecimen (Source)Anatomical Location / LateralityCollection Method / VolumeCollection TimeReceived TimeBloodVenous blood / Sxpvusm4201/07/2025 7:30 AM EST01/07/2025 2:50 PM EST Narrative Authorizing ProviderResult TypeResult StatusJoseph S Yulissa DOLAB BLOOD ORDERABLESFinal ResultPerforming OrganizationAddressCity/State/ZIP CodePhone Number [facility] [address] [place] [address], * (ABNORMAL) CBC auto differential (01/07/2025 7:30 AM EST)ComponentValueRef RangeTest MethodAnalysis TimePerformed AtPathologist ZsabfxwhaPIK49.1(H)4 - 11 10^9/L103/09/2024 2:57 PM [facility]BC Count4.50 4.1 - 5.7 10^12/L103/09/2024 2:57 PM [facility] Ssaoezzqmb19.413 - 17 g/dL01/07/2025 2:57 PM [facility]ITALHematocrit40.039 - 50 %01/07/2025 2:57 PM [facility]ITALMCV8980 - 100 fL01/07/2025 2:57 PM ESTHOLZER HOSPITALH29.827 - 34 pg01/07/2025 2:57 PM ESTHOLZER HOSPITALHC33.632 - 36 g/dL01/07/2025 2:57 PM ESTMERCY [facility] CL[facility]MONT HOSPITALRDW16.1(H)11.5 - 15 %01/07/2025 2:57 PM [facility]ITALPlatelet Eyzsg675764 - 450 10^9L103/09/2024 2:57 PM EST [facility]ITALMPV8.77 - 12 fL01/07/2025 2:57 PM EST [facility]ITALNeutrophils %71.2%01/07/2025 2:57 PM EST [facility]ITALLymphocytes %17.1%01/07/2025 2:57 PM EST [facility]ITALMonocytes %10.0%01/07/2025 2:57 PM EST [facility]ITALEosinophils %0.9%01/07/2025 2:57 PM EST [facility]ITALBasophils %0.8%01/07/2025 2:57 PM EST [facility]ITALNeutrophils Absolute (A)7.9(H)1.5 - 6.6 10^9/L103/09/2024 2:57 PM ESTMERCY HEALTH CLERMONT HOSPITALLymphocytes Absolute1.91.0 - 3.5 10^9/L103/09/2024 2:57 PM ESTPROMERCY SAN JUAN MEDICAL CENTERMonocytes Absolute1.1(H)0.0 - 0.9 10^9/L103/09/2024 2:57 PM EST [facility]ALEosinophils Absolute0.10.0 - 0.4 10^9/L 01/07/2025 2:57 PM ESTPROMERCY SAN JUAN MEDICAL CENTERBasophils Absolute0.1 0.0 - 0.2 10^9/L103/09/2024 2:57 PM [facility]STMER[facility] Differential TypeAUTOMATED DGTAPNDUECYW04/ 2:57 PM [facility]ITALPROJOHN MUIR WALN[facility]REEK MEDICAL CENTERpecimen (Source)Anatomical Location / LateralityCollection Method / VolumeCollection TimeReceived TimeBloodVenous blood / Unknown 01/07/2025 7:30 AM EST01/07/2025 2:50 PM EST Narrative Authorizing ProviderResult TypeResult StatusJoseph S Yulissa DOLAB BLOOD ORDERABLESFinal ResultPerforming OrganizationAddressCity/State/ZIP CodePhone Number [facility] [address] [place] [address], * Liver panel (01/07/2025 7:30 AM EST)ComponentValueRef RangeTest MethodAnalysis TimePerformed AtPathologist SignatureTOTAL PROTEIN7.56.0 - 8.0 g/dL01/07/2025 3:39 PM [facility]ITALALBUMIN3.83.2 - 5.3 g/dL 01/07/2025 3:39 PM [facility]ITALBILIRUBIN,TOTAL0.70.3 - 1.2 mg/dL01/07/2025 3:39 PM [facility]ITALALKALINE VXYUFUBPOMC2512 - 130 U/L103/09/2024 3:39 PM [facility]ITALAST21<=41 U/L103/09/2024 3:39 PM [facility] ALT15<=40 U/L103/09/2024 3:39 PM [facility] BILIRUBIN,DIRECT0.1<=0.4 mg/dL01/07/2025 3:39 PM [facility] SYSTEMpecimen (Source)Anatomical Location / LateralityCollection Method / VolumeCollection TimeReceived TimeBloodVenous blood / Ddeoktv7101/07/2025 7:30 AM EST01/07/2025 2:50 PM EST Narrative Authorizing ProviderResult TypeResult StatusJoseph S Yulissa DOLAB BLOOD ORDERABLESFinal ResultPerforming OrganizationAddressCity/State/ZIP CodePhone Number [facility] [address] [place] [address], [place] * (ABNORMAL) Lipid profile (01/07/2025 7:30 AM EST)ComponentValueRef RangeTest MethodAnalysis TimePerformed AtPathologist WvsdqxjmtXIBGFCYZDWL250(L)150 - 200 mg/dL01/07/2025 6:49 PM [facility] MODDKTUOTYRZDJRLELODMQ7562 - 150 mg/dL01/07/2025 6:49 PM [facility] LABORATORYHDL EWHMCCHTYFX05>39 mg/dL01/07/2025 6:49 PM [facility] LABORATORYComment: HDL <40 mg/dL - High Risk HDL > or = 40mg/dL- Desirable HDL >60 mg/dL - Negative Risk LDL (CALC)29<130 mg/dL01/07/2025 6:49 PM [facility] Comment: LDL <100 mg/dL - Desirable LDL >160 mg/dL - High Risk CHOLESTEROL:HDL1.61.0 - 5.011 6:49 PM [facility] LABORATORYVERY LOW UTBSYQVFHQC130 - 30 mg/dL01/07/2025 6:49 PM [facility] LABORATORYSpecimen (Source)Anatomical Location / Laterality Collection Method / VolumeCollection TimeReceived TimeBloodVenous blood / Ffkthic5601/07/2025 7:30 AM EST01/07/2025 2:50 PM EST Narrative Authorizing ProviderResult TypeResult StatusJoseph S Yulissa DOLAB BLOOD ORDERABLESFinal ResultPerforming OrganizationAddressCity/State/ZIP CodePhone Number [facility] [address] [place] [address], [place] [phone] * (ABNORMAL) Basic Metabolic Panel (01/07/2025 7:30 AM EST)ComponentValueRef RangeTest MethodAnalysis TimePerformed AtPathologist ExfgabyynLZWORN862403 - 146 mmol/L103/09/2024 3:39 PM ESTPROMERCY SAN JUAN MEDICAL CENTERPOTASSIUM 4.23.5 - 5.0 mmol/L103/09/2024 3:39 PM ESTPROMERCY SAN [facility]ICAL [facility]ENTER BKUVXXJB1869 - 109 mmol/L103/09/2024 3:39 PM ESTMERCY HE[facility] CLERMONT HOSPITALCARBON KCZGNYM1699 - 32 mmol/L103/09/2024 3:39 PM ESTMERCY HEALTH CLERMONT HOSPITALANION GUV257 - 15 mmol/L103/09/2024 3:39 PM [facility]ITALBLOOD UREA XINRCRQX516 - 27 mg/dL01/07/2025 3:39 PM [facility]ITALCREATININE1.35(H)0.70 - 1.20 mg/dL 01/07/2025 3:39 PM [facility]PITALComment:METHOD TRACEABLE TO IDMS APHBGWNYUMSPQKP0594 - 99 mg/dL01/07/2025 3:39 PM EST [facility] HOSPITALCALCIUM9.08.5 - 10.5 mg/dL01/07/2025 3:39 PM [facility]OSPITALEGFR Non-Race Csqpvlfyz82(L)>=60 ml/min/1.73sq.m103/09/2024 3:39 PM [facility] Comment: eGFR not reported due to non-numeric value for Creatinine. Reported eGFR is based on the CKD-EPI 2020 equation that does not use a race coefficient. 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
--- OUTSIDE RECORDS SUMMARY | 2025-01-19 15:45 | XMS_ITS | Clinical Summary ---
Author Organization [facility] Address [address] [place] [address] Phone Care Team Providers Care Faith Healer Name Role Phone Tripp Cat DO Primary Care Provider Allergies Active AllergyReactionsCriticalityNoted DateCommentsAce InhibitorsOther 4PenicillinsHives,Itching,WhalMcb4003/13/2023 Medications MedicationSigDispense QuantityRefillsLast FilledStart DateEnd DateStatus finasteride (Proscar) 5 mg tablet Take 1 tablet (5 mg) by mouth once daily.Active metFORMIN (Glucophage) 1,000 mg tablet Take 1 tablet (1,000 mg) by mouth once daily with breakfast.Active montelukast (Singulair) 10 mg tablet Take 1 tablet (10 mg) by mouth once daily.Active multivitamin (Daily Multi-Vitamin) tablet Take 1 tablet by mouth once daily.Active atorvastatin (Lipitor) 10 mg tablet Indications:Mixed hyperlipidemiaTAKE 1/2 TABLET BY MOUTH ONCE DAILY AT BEDTIME 45 tablet 4Active ezetimibe (Zetia) 10 mg tablet Take 1 tablet (10 mg) by mouth once daily.5Active Bifidobacterium longum (Align, B.longum,) 10 million cell capsule Take 1 capsule by mouth once daily.Active sennosides (Senokot) 8.6 mg tablet Take 1 tablet (8.6 mg) by mouth if needed for constipation.Active polyethylene glycol (Glycolax, Miralax) 17 gram packet Take 17 g by mouth if needed.Active cholecalciferol (Vitamin D3) 25 mcg (1,000 units) tablet Take 1 tablet (25 mcg) by mouth once daily.Active rivaroxaban (Xarelto) 20 mg tablet Indications:Paroxysmal atrial fibrillation (Multi)Take 1 tablet (20 mg) by mouth once daily in the evening. Take with meals. Take with food. 90 tablet 5Active nitroglycerin (Nitrostat) 0.4 mg SL tablet Indications:2-vessel coronary artery diseasePlace 1 tablet (0.4 mg) under the tongue every 5 minutes if needed for chest pain (Report to the ERor call 911 after third dose.). 90 tablet 5Active metoprolol succinate XL (Toprol-XL) 25 mg 24 hr tablet Indications:Paroxysmal atrial fibrillation (Multi),Hypertension, benignTake 0.5 tablets (12.5 mg) by mouth once daily. 45 tablet //ctive Active Problems ProblemNoted DateDiagnosed DateACE inhibitor /21/2025MI 26.0-26.9,adult07/09/2024Former czroln5407/09/2024Subdural /21/2025TIA (transient ischemic attack)52945-vdbgmt coronary artery pknuhrc8803/13/2023 COPD (chronic obstructive pulmonary disease)03/13/20237614Qmfmjnvq32/23/2024 Echocardiogram eryzapdm52/23/2024Facial alzrlhxp71/23/2024Hyperlipidemia 03/13/2023Hypertension, ozordm1303/13/2023aroxysmal atrial nwfruvpejddf73/23/2024 PVC (premature ventricular contraction)03/13/20236881Ioyofpnw17/23/2024 Immunizations ImmunizationAdministration DatesNext DueFlu vaccine, trivalent, preservative free, HIGH-DOSE, age 65y+ (Fluzone)12/22/2020,11/20/2019,11/06/2019,11/28/2016 Influenza Whole11/19/2013Pfizer Purple Cap INJG-DzD-396/11/2021,1Pfizer SARS-CoV-2 3 mcg/0.2 mL1Pneumococcal conjugate vaccine, 13-valent (PREVNAR 13)07/13/2016Pneumococcal polysaccharide vaccine, 23-valent, age 2 years and older (PNEUMOVAX 23)10/18/2020,11/20/2007 Family History Medical HistoryRelationNameCommentsNo Known ProblemsFatherNo Known Problems MotherCancerSisterRelationNameStatusCommentsFatherMotherSister Social History Tobacco UseTypesPacks/DayYears UsedDateSmoking Tobacco: FormerCigarettes Smokeless Tobacco: NeverAlcohol UseStandard Drinks/WeekCommentsNot Currently0 (1 standard drink = 0.6 oz pure alcohol)Sex and Gender InformationValueDate RecordedSex Assigned at BirthNot on fileLegal PyyOnyz76/26/2022 6:43 PM EST Gender IdentityNot on fileSexual OrientationNot on file Last Filed Vital Signs Vital SignReadingTime TakenCommentsBlood Mgrcxuoa345/66007/09/2024 11:24 AM EDT Zdrrr393007/09/2024 11:24 AM EDTTemperature--Respiratory Rate--Oxygen Saturation-- Inhaled Oxygen Concentration--Xelqnt35.3 kg (219 lb)07/09/2024 11:24 AM EDT Ksoqci702 cm (6' 4 )07/09/2024 11:24 AM EDTBody Mass Index26.66007/09/2024 11:24 AM EDT Plan of Treatment DateTypeDepartmentCare Team (Latest Contact Info)Mefaaozwusy58/03/2025 11:00 AM ESTOffice Visit [facility] [address] [phone] Lisset Ford, RUBBER ROLLER GRINDER OPERATOR-[facility] [address] [facility] [address] [place] [address] Health MaintenanceDue DateLast DoneCommentsDiabetes: Hemoglobin A1C1935 Diabetes: Urine Protein Mdfafglcp91/04/1936Lipid Panel1935DTaP/Tdap/Td Vaccines (1 - Tdap)1957Zoster Vaccines (1 of 2)1985RSV High Risk: (Elderly (60+) or Population) (1 - 1-dose 75+ series)2010Medicare Annual Wellness Visit (AWV)/Diabetes: Retinopathy Screening /06/2020Influenza Vaccine (#1)/04/2020, 11/20/2019, 11/10/2019, Additional history existsCOVID-19 Vaccine ( season) 508/07/2021, 07/20/2020, 04/01/2020, Additional history exists Pneumococcal PqbrqwcKkyondhai03/30/2021, 12/16/2019, 07/13/2016, Additional history existsHIB VaccinesAged OutNo longer eligible based on patient's age to complete this topicHPV VaccinesAged OutNo longer eligible based on patient's age to complete this topicHepatitis A VaccinesAged OutNo longer eligible based on patient's age to complete this topicHepatitis B VaccinesAged OutNo longer eligible based on patient's age to complete this topicIPV VaccinesAged OutNo longer eligible based on patient's age to complete this topicMeningococcal VaccineAged OutNo longer eligible based on patient's age to complete this topic Rotavirus VaccinesAged OutNo longer eligible based on patient's age to complete this topic Insurance Care Teams Team MemberRelationshipSpecialtyStart DateEnd Date Tripp Cat DO [facility] [place] [address] PCP - GeneralInternal Medicine04/05/23
== END 2025-01-19 15:37 | disposition home or self-care (01) ==
LOC: LAB 15:36
PROVIDERS: PCP Internal Medicine; Visit Provider Urology
DX: N39.0 Urinary tract infection, site not specified (principal)
CPT/HCPCS: 87086